=== PATIENT | male | born 1970 | race Caucasian/White ===

== ENCOUNTER 2020-05-04 10:33 | Emergency (ER) | payer OTHER, SELFPAY ==
--- NOTE | ~2020-05-04 | XR_ITS ---
EXAMINATION: XR ankle LT min 3V EXAM DATE: 05/04/2020 12:09 INDICATION: No known recent injury provided at this time. Pain of the left ankle. TECHNIQUE: Left ankle frontal, lateral and oblique projections obtained and reviewed. There is no pr ior study for comparison. FINDINGS: The left ankle mortise appears intact. Moderate-sized posterior, small inferior calcanea l spurs. Some edema within the Achilles fat pad and surrounding the ankle, nonspecific. There are no acute fractures or dislocations identified. There is no subcutaneous gas. There are no radiopaque f oreign bodies. IMPRESSION: Nonspecific left ankle region soft tissue swelling. Reviewed, dictated and finalized at location A.
[2020-05-04 10:42] VITALS: BP 133/92; PULSE 87; RESP 16; TEMP 36.3; O2SAT 100
--- NOTE | 2020-05-04 11:51 | ED.GENADULT ---
HPI - General Adult General Chief complaint: Extremity Injury, Lower Stated complaint: lt ankle injury Source: patient Mode of arrival: ambulatory Limitations: no limitations History of Present Illness HPI narrative: Patient presents for evaluation of swelling and pain to the left ankle. He states that he first noticed his symptoms yesterday. Yesterday he had 9 out of 10 pain in the left ankle, worse with weightbearing and walking. No descriptive quality to the pain. Today he states that his pain is rated 8 out of 10 in severity. He thinks he may have tweaked it last Tuesday while doing yard work. He has a history of gout but is not on medication for it. He thought his symptoms were related to gout. He took naproxen yesterday without much improvement thereafter. Related Data Home Medications Medication Instructions Recorded Confirmed No Home Medications 04/15/20 04/15/20 Allergies Allergy/AdvReac Type Severity Reaction Status Date / Time No Known Allergies Allergy Unknown Verified 07/28/18 13:16 Review of Systems Review of Systems: Narrative: CONSTITUTIONAL: Denies fever, chills, or sweats. EYES: Denies visual changes, redness, or discharge. ENT: Denies rhinorrhea, congestion, sore throat, or otalgia. CARDIOVASCULAR: Denies chest pain, palpitations. RESPIRATORY: Denies cough or dyspnea. GASTROINTESTINAL: Denies abdominal pain, nausea, vomiting, or diarrhea. GENITOURINARY: Denies dysuria or hematuria. SKIN: Denies rash or itching. MUSCULOSKELETAL: Denies back pain. Reports left ankle pain and swelling NEUROLOGIC: Denies headache, numbness, dizziness, or weakness. PSYCHIATRIC: Denies anxiety or depression. PMFSH Past Medical History Medical History Atrial fibrillation Elbow pain Gout ENEDINA (obstructive sleep apnea) Renal stones Family History Family History Sibling Cerebrovascular accident Hypertension Father Heart disease Mother Diabetes mellitus Social History Social History Smoking status: Former smoker Alcohol intake: current Living arrangements: with family Sexual Orientation (if Verbalized by the Patient): Straight or Heterosexual Exam Narrative: Exam Narrative: GENERAL: Well-appearing, well-nourished, and in no acute distress. HEAD: Normocephalic, atraumatic. EYES: PERRLA and EOMI. ENT: Nares clear, no rhinorrhea or epistaxis. Mucous membranes moist. Oropharynx without tonsillar hypertrophy exudate or other lesions. Bilateral TMs pearly hernandez nonbulging NECK: Supple. No adenopathy or masses. No carotid bruits or JVD CHEST: Clear to auscultation. No respiratory distress. No wheezes rales or rhonchi HEART: Regular rate and rhythm. No murmur heard. Normal peripheral pulses. ABDOMEN: Soft, nontender, nondistended, normal active bowel sounds. EXTREMITIES: Decreased dorsi and plantarflexion of left foot. There is tenderness over left medial malleolus. Swelling noted to left ankle. No posterior calf tenderness. No cords. SKIN: Warm, dry, no rash. Erythema noted to left ankle NEURO: No focal deficits. Alert and oriented x3. PSYCH: Normal mood and affect. Course Course Emergency Course: Pt presents for evaluation of ankle pain. He has a hx of gout and this feels similar. X ray shows no fracture and there is swelling and erythema over medial malleolus. Doubt septic joint as he is able to dorsi and plantarflex affected foot. He has a hx of a fib but doubt DVT as he has no cords, posterior calf tenderness or swelling. EKG shows sinus rhythm. Will treat for suspected gout and have him follow up tomorrow with PCP for evaluation and to determine whether additional testing clinically warranted. Vital Signs Vital signs: Vital Signs Temperature 36.3 C L 05/04/20 10:42 Pulse Rate 87 05/04/20 10:42 Re
--- NOTE | 2020-05-04 12:43 | ECG_ITS ---
Measurements Intervals [place] Rate: 80 P: 29 [place]: 136 QRS: 30 QRSD: 91 T: 40 QT: 361 QTc: 417 Interpretive Statements SINUS RHYTHM INCOMPLETE RIGHT BUNDLE BRANCH BLOCK BASELINE ARTIFACT- II, III, AVF BORDERLINE ECG Electronically Signed On 05-04-2020 16:55:45 CDT by Major Herrera D.O.
== END 2020-05-04 13:18 | disposition home or self-care (01) ==
PROVIDERS: Emergency Provider Nurse Practitioner; PCP Internal Medicine
DX: M10.9 Gout, unspecified (principal); Z87.891 Personal history of nicotine dependence; I48.91 Unspecified atrial fibrillation; G47.33 Obstructive sleep apnea (adult) (pediatric); I45.10 Unspecified right bundle-branch block
CPT/HCPCS: 73610; 93005; 99213; G0463

== ENCOUNTER 2020-11-07 09:04 | Outpatient (CLI) | payer OTHER, SELFPAY ==
--- NOTE | 2020-12-10 14:45 | WPDHOMESLEEP ---
Sleep Study - Home Unattended Date of Study: 11/07/20 Ordering Provider: YO Weinberg-Alissa Interpreting Provider: Jesica Whitt MD Home Sleep Study Type: Watch PAT Height: 1.85 m Weight: 115.666 kg Body Mass Index: 33.6 Neck Circumference (inches): 18 Klemme: 16 Reason for Sleep Study Excessive daytime sleepiness Sleep History Andrews Sutton is a 50 year old male who has excessive daytime sleepiness. He has been snoring for many years. His snoring is very loud and others complain about it constantly. He does not awaken at night with heartburn, belching or coughing. He does not awaken from sleep feeling short of breath. There is a family history with his father having sleep apnea. he does not have trouble sleep with a cold. He does not wake up suddenly gasping for breath during the night. He constantly has breathing problems at night reported to him by others. He does not sweat excessively at night or notices heart pounding or beating irregularly at night. He occasionally falls asleep during the day, occasionally falls asleep involuntarily but never falls asleep while driving. He does not have loss of muscle tone with strong emotion. He occasionally has daytime difficulties due to excessive sleepiness. 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 He does not feel paralyzed on waking or falling asleep. He does not have vivid dreamlike scenes upon awakening or falling asleep. He does not feel afraid to go to sleep. He denies having nightmares. He does not remember his dreams. Occasionally has racing thoughts. He occasionally feels sad, depressed and anxious. He does not have muscular tension. He does not notice parts of his body jerking. He does not kick at night. He does not have crawling or aching feelings in his legs and does not have any kind of leg pain at night. He does not have morning jaw pain. He does not grind his teeth during sleep. He occasionally is bothered by pain during the day. He is not awakened by pain during the night. He occasionally wakes up feeling stiff in the morning with sore achy muscles and pain in the neck and spine. He has fatigue, memory problems concentration difficulties and headaches. Normal bedtime is 1:00 a.m. taking 10 minutes to fall asleep typically waking not at all at night or up to 1 time per night. He flips to the other side and goes back to sleep. This takes about 5 minutes. He wakes the morning at 9:00 a.m.. He estimates getting between 6 and 8 hours of sleep at night. His weekend schedule is the same. he takes naps in the afternoon or evening. A short nap is not refreshing. Most of the time he feels adequate when he wakes in the morning. He has gained 5-10 lb in the last year. Habits: Never smoked tobacco. He drinks a significant amount of caffeine. He denies alcohol or recreational drugs. [facility] Past Medical History Medical History Atrial fibrillation Elbow pain Gout ENEDINA (obstructive sleep apnea) The patient does not currently have a CPAP or BiPAP machine but recently was tested for sleep apnea he stated that he did the overnight study. 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 The patient desires to be a full code. He has 2 children who are healthy. Patient is a lifelong nonsmoker but did get exposed to secondhand smoke a
[2020-12-10 15:00] VITALS: BMI 33.6
== END 2020-11-07 09:05 | disposition home or self-care (01) ==
LOC: ANHCSM 09:04
PROVIDERS: PCP Internal Medicine; Visit Provider Clinical Nurse Specialist
DX: G47.10 Hypersomnia, unspecified (principal)
CPT/HCPCS: 95800

== ENCOUNTER 2020-12-05 13:21 | Inpatient (IN) | payer OTHER, SELFPAY ==
[2020-12-05] VITALS (32 sets, daily range): BP systolic 104–128; BP diastolic 73–94; PULSE 90–147; RESP 16–23; TEMP 36.1–36.6; O2SAT 97–100; BMI 33.6
--- NOTE | ~2020-12-05 | XR_ITS ---
EXAMINATION: XR chest 1V portable DATE: 12/05/2020 14:33 INDICATION: Palpitations. TECHNIQUE: frontal view of the chest was obtained. COMPARISON: Chest radiograph dated 07/28/2018 FINDINGS: Unchanged minimal linear discoid atelectasis/scarring at the lateral left lung base. No other airspac e opacities, pulmonary edema, pleural effusion or pneumothorax. The cardiomediastinal silhouette is n ormal. Visualized bones and soft tissues are unremarkable. IMPRESSION: 1. Unchanged minimal left basilar atelectasis/scarring. Reviewed, dictated and finalized at location A.
--- NOTE | 2020-12-05 13:24 | ECG_ITS ---
Measurements Intervals [place] Rate: 150 P: [place]: 0 QRS: 42 QRSD: 79 T: 120 QT: 184 QTc: 290 Interpretive Statements ATRIAL FLUTTER/TACHYCARDIA WITH RAPID VENTRICULAR RESPONSE NONSPECIFIC ST & T-WAVE ABNORMALITY- ANTEROLAT/HIGH LAT LEADS ABNORMAL ECG Electronically Signed On 12-05-2020 13:39:20 CDT by Major Herrera D.O.
[2020-12-05] MEDS: SODIUM CHLORIDE 0.9% IV 1,000 ML 999 ML (13:57)
[2020-12-05 13:59] LABS: Basophils Percent Auto 0.6 % (0.2-1.2); Eosinophils Absolute Auto 0.1 K/mm3 (0-0.3); Eosinophils Percent Auto 1.7 % (0-4.4); Hematocrit 49.9 % (42.0-52.0); Hemoglobin 17.1 g/dL (14.0-18.0); Immature Granulocyte Absolute 0.03 K/mm3 (0.00-0.031); Immature Granulocyte Percent A 0.5 % (0-0.5); Lymphocytes Absolute Auto 1.33 K/mm3 (0.9-3.2); Lymphocytes Percent Auto 20.1 % (18.3-44.2); Mean Corpuscular HGB Conc 34.3 g/dl (32-36); Mean Corpuscular Hemoglobin 29.6 pg (26-34); Mean Corpuscular Volume 86.3 fl (80-100); Monocytes Absolute Auto 0.7 K/mm3 (0.1-0.6); Monocytes Percent Auto 9.8 % (2.6-8.5); Neutrophils Absolute Auto 4.5 K/mm3 (1.3-6.7); Neutrophils Percent Auto 67.3 % (45.5-73.1); Platelet Count Result 157 k/mm3 (150-375); Red Blood Count 5.78 M/mm3 (4.6-6.20); Red Cell Distribution Width 13.4 % (11.5-14.5); White Blood Count 6.6 K/mm3 (4.5-10.0)
[2020-12-05 14:14] LABS: INR 0.9; Partial Thromboplastin Time 26.3 SECONDS (22.3-36.8); Prothrombin Time 13.2 Seconds (11.1-14.7)
[2020-12-05 14:18] LABS: Anion Gap 5 mmol/L (8-16); Blood Urea Nitrogen 13 mg/dL (9-20); Calcium 9.4 mg/dL (8.4-10.2); Carbon Dioxide 31 mmol/L (22-30); Chloride 101 mmol/L (98-107); Estimated CRCL calculation 77 ml/min; Estimated Glomerular Filt Rate 54; Glucose 225 mg/dL (75-110); Potassium 4.4 mmol/L (3.4-5.0); Sodium 137 mmol/L (137-145)
[2020-12-05 14:29] LABS: Troponin I 0.016 ng/mL (0.000-0.034)
[2020-12-05] MEDS: METOPROLOL TARTRATE INJ 5 MG/5 ML VIAL IV PUSH ×2 (15:11→23:55)
--- NOTE | 2020-12-05 15:20 | PC.NURSE ---
p 141 regular
--- NOTE | 2020-12-05 15:36 | ED.ARRPALP ---
HPI - Arrhythmia/Palpitations General Chief Complaint: Arrhythmia/Palpitations Stated Complaint: A-Fib acting up Time Seen by Provider: 12/05/20 13:39 Source: patient Mode of arrival: ambulatory Limitations: no limitations History of Present Illness HPI narrative: 50-year-old male Had a history of paroxysmal atrial flutter 2 or 3 years ago He was hospitalized here, did not respond initially to diltiazem, but did convert with amiodarone at that time Currently is not taking any medications Yesterday he had a couple of episodes that were brief where he felt like his heart might have been fluttering Today he was getting ready for work around 1030 and his heart started racing and he felt lightheaded He denies chest pain, shortness of breath, nausea or vomiting, or diaphoresis; he just felt very weak and tired No triggers, he does not consume alcohol Related Data Home Medications Medication Instructions Recorded Confirmed No Home Medications 04/15/20 05/16/20 Allergies Allergy/AdvReac Type Severity Reaction Status Date / Time No Known Allergies Allergy Unknown Verified 05/16/20 10:07 Review of Systems Review of Systems: All systems reviewed & are unremarkable except as noted in HPI and below Constitutional: Constitutional: Reports no additional constitutional complaints, Denies chills, Reports fatigue, Denies fever(s), Denies headache(s) and Reports weakness Eyes: Eyes: Reports no additional eye complaints and Denies change in vision ENT: Denies headache(s) and Denies sore throat Cardiovascular: Cardiovascular: Denies chest pain, Reports rapid heart rate, Denies radiating jaw, neck or arm pain and Denies dyspnea Respiratory: Respiratory: Denies cough and Denies dyspnea Gastrointestinal: Gastrointestinal: Denies abdominal pain, Denies diarrhea and Denies vomiting Genitourinary: Genitourinary: Denies dysuria and Denies urinary frequency Musculoskeletal: Musculoskeletal: Denies deformity, Denies arthralgias, Denies joint swelling and Denies numbness Integumentary/Breasts: Skin/Breast: Denies rash and Denies wounds Neurologic: Denies headache(s), Denies focal weakness and Denies numbness Psychiatric: Psychiatric: Reports no additional psychiatric complaints Endocrine: Endocrine: Reports no additional endocrine complaints Hematologic/Lymphatic: Hematologic/Lymphatic: Reports no additional hematologic/lymphatic complaints Allergic/Immunologic: Allergic/Immunologic: Reports no additional allergic/immunologic complaints PMFSH Past Medical History Medical History (Updated 12/05/20 @ 17:21 by Lg Valdez MD) Atrial fibrillation Elbow pain Gout ENEDINA (obstructive sleep apnea) Renal stones Family History Family History Sibling Cerebrovascular accident Hypertension Father Heart disease Mother Diabetes mellitus Social History Social History (Updated 05/06/20 @ 08:40 by Pratibha Davis, [facility]) Smoking status: Never smoker Alcohol intake: never Exam Const: General: cooperative, healthy appearing, no acute distress and alert Orientation/consciousness: patient oriented x3 (alert) HENMT: Head: normal to inspection, normocephalic and atraumatic Ears: external ears normal General nose exam: no epistaxis Eyes: Conjunctivae: conjunctivae normal EOM: EOMs intact bilaterally Neck: Neck: normal visual inspection, supple and no JVD Resp: Effort & Inspection: normal respiratory effort and not labored Auscultation: clear to auscultation bilaterally, no rales, no rhonchi, no wheezes and other (BS =) Cardio: Rate: regular rate and tachycardic Rhythm: regular rhythm Heart sounds: no murmurs GI: GI Palp: Yes Soft to palpation and No Tenderness to palpation present (GI) Skin: General skin exam: normal color and no rashes or lesions noted Neuro: General: patient oriented x3 (alert) and moves all extremities Speech: normal spee
[2020-12-05 17:00] LABS: Troponin I 0.019 ng/mL (0.000-0.034)
[2020-12-05] MEDS: AMIODARONE 150 MG/D5W 100 ML 150 MG/100 ML BAG 600 MG IV CONT (17:33)
[2020-12-05] MEDS: ENOXAPARIN 120 MG/0.8 ML SYRINGE SUB-Q (17:40)
[2020-12-05] MEDS: AMIODARONE 360 MG/D5W 200 ML 360 MG/200 ML BAG 33.33 MG IV CONT (17:48)
--- NOTE | 2020-12-05 18:09 | PC.NURSE ---
pt noted to convert from st to aflutter on monitor.
--- NOTE | 2020-12-05 20:31 | ADMGEN ---
This patient, Andrews Sutton, was admitted to IMU Room 201-01 on 12/05/20 at 2013. Patient/family oriented to hospital policies and general routines including ID bracelet, bed and alarms, visiting hours, pain management, procedures, bathroom and other care routines, personal items, smoking policy, room service/diet, and visiting hours. Information on how to activate the Rapid Response Team has been discussed. Patient/Family are encouraged to report perceived risks to care and to ask questions if they do not understand what they are told or what they should do.
[2020-12-05 21:44] LABS: Troponin I < 0.012 ng/mL (0.000-0.034)
[2020-12-06] VITALS (22 sets, daily range): BP systolic 112–135; BP diastolic 64–92; PULSE 63–144; RESP 16; TEMP 35.7–36.2; O2SAT 97–98
[2020-12-06] MEDS: AMIODARONE 360 MG/D5W 200 ML 360 MG/200 ML BAG 16.67 MG IV CONT ×2 (00:02→12:12)
--- NOTE | 2020-12-06 00:09 | PM.IMHP ---
H&P: HPI History of Present Illness Date/Time: 12/05/20 [id number] this is a 50-year-old male patient who has a history of having AFib/a flutter in the past. The patient had been admitted here on 07/28/2018 where he was having some palpitations and came to the emergency room per private vehicle. The patient was found to be in AFib/flutter with rapid ventricular response. Who is placed on a Cardizem drip without improvement of his heart rate and was having a softer blood pressures so then he was started on amiodarone drip. The patient converted to normal sinus rhythm. He has not been on any medications since then. It was suggested that the patient take a aspirin daily but he is not even on an aspirin. And he had a couple episodes where he felt his heart flutter. Today the patient got ready for work and his heart started racing and felt lightheaded. The patient felt weak and tired. No chest pain or shortness of breath no diaphoresis nausea vomiting. His troponins were found to be negative x3. Cardiology has been consulted. The patient had been on a amiodarone drip and help to bring his heart rate down in the 1 teens. However the drip ran out and I gave him Lopressor when his heart rate was up in the 130s and 140s and it brought his heart rate down the 90s which it looked more like 3-1 and 2-1 atrial flutter. However was still very weak irregular and possibly AFib a flutter. I did continue with the amiodarone drip. However he did respond to the beta-beti. The patient was given an aspirin, IV fluids and amiodarone drip in the emergency room. He was given a dose of Lovenox as well. Patient is being admitted to observation on the date of service of 12/05/2020. Chief Complaint: Palpitation Review of Systems Review of Systems: All systems reviewed & are unremarkable except as noted in HPI and below Constitutional: Constitutional: Reports as per HPI and Reports no additional constitutional complaints Eyes: Eyes: Reports as per HPI and Reports no additional eye complaints ENT: Reports system reviewed and no additional complaints, except as documented and Reports Normal hearing present Cardiovascular: Cardiovascular: Reports no additional cardiovascular complaints Respiratory: Respiratory: Reports no additional respiratory complaints and Reports no additional respiratory complaints Gastrointestinal: Gastrointestinal: Reports as per HPI and Reports no additional gastrointestinal complaints Musculoskeletal: Musculoskeletal: Reports no additional musculoskeletal complaints Integumentary/Breasts: Skin/Breast: Reports system reviewed and no additional complaints, except as docu and Reports as per HPI Neurologic: Reports system reviewed and no additional complaints, except as documented, Reports as per HPI and Reports Normal hearing present Psychiatric: Psychiatric: Reports no additional psychiatric complaints and Reports as per HPI Endocrine: Endocrine: Reports no additional endocrine complaints Hematologic/Lymphatic: Hematologic/Lymphatic: Reports no additional hematologic/lymphatic complaints Allergic/Immunologic: Allergic/Immunologic: Reports no additional allergic/immunologic complaints [facility] Past Medical History Medical History (Updated 12/06/20 @ 00:15 by Kenzie Worrell NP) Atrial fibrillation Elbow pain Gout ENEDINA (obstructive sleep apnea) The patient does not currently have a CPAP or BiPAP machine but recently was tested for sleep apnea he stated that he did the overnight study. Renal stones Surgical History Surgical History (Updated 12/06/20 @ 00:15 by Kenzie Worrell NP) H/O cystoscopy History of extraction of renal calculus History of renal stent S/P cystourethroscopy with dilation of urethral stricture Family History Family History Sibling Hypertension Cerebrovascular accident Diabetes mellitus Father Heart disease Atrial fibrillation Mother Diabetes
[2020-12-06 04:42] LABS: Basophils Absolute Auto 0.1 K/mm3 (0.0-0.1); Basophils Percent Auto 0.7 % (0.2-1.2); Eosinophils Absolute Auto 0.2 K/mm3 (0-0.3); Eosinophils Percent Auto 2.2 % (0-4.4); Hematocrit 45.2 % (42.0-52.0); Hemoglobin 15.4 g/dL (14.0-18.0); Immature Granulocyte Absolute 0.02 K/mm3 (0.00-0.031); Immature Granulocyte Percent A 0.3 % (0-0.5); Lymphocytes Absolute Auto 2.67 K/mm3 (0.9-3.2); Lymphocytes Percent Auto 37.5 % (18.3-44.2); Mean Corpuscular HGB Conc 34.1 g/dl (32-36); Mean Corpuscular Hemoglobin 29.7 pg (26-34); Mean Corpuscular Volume 87.3 fl (80-100); Mean Platelet Volume 9.5 fl (7.4-10.4); Monocytes Absolute Auto 0.7 K/mm3 (0.1-0.6); Monocytes Percent Auto 10.4 % (2.6-8.5); Neutrophils Absolute Auto 3.5 K/mm3 (1.3-6.7); Neutrophils Percent Auto 48.9 % (45.5-73.1); Platelet Count Result 146 k/mm3 (150-375); Red Blood Count 5.18 M/mm3 (4.6-6.20); Red Cell Distribution Width 13.3 % (11.5-14.5); White Blood Count 7.1 K/mm3 (4.5-10.0)
[2020-12-06 05:00] LABS: Alanine Aminotransferase 33 U/L (4-50); Albumin Level 3.6 g/dL (3.5-5.1); Alkaline Phosphatase 69 U/L (38-126); Anion Gap 3 mmol/L (8-16); Aspartate Amino Transferase 27 U/L (17-59); Bilirubin,Total 0.5 mg/dL (0.2-1.3); Blood Urea Nitrogen 15 mg/dL (9-20); Carbon Dioxide 31 mmol/L (22-30); Chloride 104 mmol/L (98-107); Estimated CRCL calculation 83 ml/min; Estimated Glomerular Filt Rate 59; Glucose 219 mg/dL (75-110); Magnesium 1.9 mg/dL (1.6-2.3); Potassium 4.2 mmol/L (3.4-5.0); Sodium 138 mmol/L (137-145)
--- NOTE | 2020-12-06 06:00 | ECHO_ITS ---
Patient Info Name: Andrews Sutton Age: 50 years : 1970 Gender: Male Ht: 73 in Wt: 254 lbs BSA: 2.47 m2 HR: 132 bpm BP: 112 / 70 mmHg Heart Rhythm: Atrial Flutter Technical Quality: Good Exam Date: 12/06/2020 10:56 AM Exam Location: [facility] Card Pulmonary Patient Status: Inpatient Admit Date: 12/05/2020 Staff Ordering Physician: Lg Valdez MD Ski Edge Painter: Rebecca Prescott RDCS Attending Provider: Laura Mckeon MD Referring Physician: José Miguel LUBIN; Exam Type: CA echo doppler color flow Study Info Complete two-dimensional, color flow and Doppler transthoracic echocardiogram is performed. Summary 1. Complete two-dimensional, color flow and Doppler transthoracic echocardiogram is performed. 2. Left ventricular systolic function is normal, estimated at 55-60%. 3. There is mildly increased left ventricular wall thickness. 4. There is no aortic valve stenosis. 5. There is trace mitral valve regurgitation. 6. There is trace tricuspid valve regurgitation. 7. Unable to estimate PA systolic pressure due to poor spectral resolution of tricuspid regurgitant jet velocity. Left Ventricle Left ventricular chamber dimension is normal. Left ventricular systolic function is normal, estimated at 55-60%. There is mildly increased left ventricular wall thickness. The left ventricular diastolic function is indeterminate. Right Ventricle Right ventricular chamber dimension is normal. Right ventricular systolic function is normal. Left Atria Left atrial chamber dimension is normal. Right Atria Right atrial chamber dimension is normal. Aortic Valve The aortic valve is not well visualized. There is no aortic valve stenosis. There is no aortic valve regurgitation. Pulmonic Valve The pulmonic valve is not well visualized. Mitral Valve The mitral valve has thickened leaflets. There is trace mitral valve regurgitation. Tricuspid Valve The tricuspid valve leaflets are normal. There is trace tricuspid valve regurgitation. Unable to estimate PA systolic pressure due to poor spectral resolution of tricuspid regurgitant jet velocity. Pericardium/Pleural The pericardium appears normal. There is trivial pericardial effusion. Inferior Vena Cava Normal inferior vena cava with >50% collapse upon inspiration consistent with normal right atrial pressure, 5 mmHg. Aorta The aortic root size at the sinus of Valsalva is normal. Left Ventricular Outflow Tract Name Value Normal LVOT 2D LVOT Diameter 2.2 cm LVOT Doppler LVOT Peak Velocity 64 cm/s LVOT Peak Gradient 1 mmHg LVOT Mean Gradient 1 mmHg LVOT VTI 10 cm LVOT VTI/AV VTI Ratio 1.2 LVOT Stroke Volume 40 ml LVOT CO 5.2 l/min LVOT CI 2.1 l/min/m2 Pulmonic Valve Name Value Normal
--- NOTE | 2020-12-06 09:12 | PM.IMPN ---
Progress Note: A&P Assessment and Plan (1) Atrial flutter with rapid ventricular response: Code(s): I48.92 - Unspecified atrial flutter Status: Acute (2) Obesity: Code(s): E66.9 - Obesity, unspecified Status: Acute (3) Right bundle branch block: Code(s): I45.10 - Unspecified right bundle-branch block Status: Acute (4) Gout: Qualifiers: Chronicity: acute Gout etiology: unspecified cause Gout site: multiple sites Qualified Code(s): M10.9 - Gout, unspecified Code(s): M10.9 - Gout, unspecified Status: Acute Additional Plan 12/05/20 patient had an episode back in July of 2018. The patient had a rapid heart rate so was hard to determine if it was AFib or a flutter. However once I gave the beta-beti and the heart rate slowed down some it looks like his more flutter. However the heart rate is irregular. So he may be AFib flutter. The patient may possibly benefit from a beta-beti. Last admission he I am converted with medication. The patient was given the choice of having a cardioversion in the be sent home or stay at the hospital with the medication drip. The patient chose to stay overnight on the drip. Cardiology has been consulted. Troponins are negative x3. The patient was given a dose of subcu Lovenox. Patient's Ernesto Vasc score is actually 0. An echo has been ordered. We discussed possibly taking the full dose enteric-coated aspirin. Further recommendation per Cardiology. The patient recently was tested for sleep apnea but has not been ordered any CPAP machine. 12/06/20 recurrent episodes of afib/flutter 1st episode July of 2018, a very brief episode last that resolved, palpitations presented again on Tuesday morning while he was getting ready for work day did not resolve and he came to to the ER to seek medical attention. Pt remains in aflutter, cardiology bedside. plan of care reviewed w pt. will cont on amiodarone gtt and start PO Metoprolol. pt to be discharged on OAC for 30days and then transition to ASA 81mg PO Daily. Cardiology recommendations greatly appreciated. Subjective Date/time seen: 12/06/20 09:12 Patient doing okay. He does feel that his heart is still racing but he denies use severe symptoms associated with this. Last BM 2 days ago. no other complaint Exam Narrative: Exam Narrative: GEN: NAD, AAOx3, cooperative HEENT: NCAT, MMM, EOMI Neck: no JVD Heart: IRR Lungs: CTA B/l Abd: soft, NT, ND, bowel sounds normoactive Ext: moves all, no cyanosis, no clubbing, no edema Psych: mood and affect congruent Objective Data Vital Signs Vital Signs: Vital Signs - 24 hr 12/05/20 13:28 12/05/20 13:55 12/05/20 14:00 Temperature 97.8 F Pulse Rate 147 H 143 H 143 H Respiratory Rate 20 20 17 Blood Pressure 111/78 Pulse Oximetry 97 97 98 12/05/20 14:01 12/05/20 14:17 12/05/20 14:30 Temperature Pulse Rate 142 H 142 H 144 H Respiratory Rate 22 H 19 21 H Blood Pressure 113/92 H Pulse Oximetry 97 98 98 12/05/20 14:31 12/05/20 14:45 12/05/20 14:46 Temperature Pulse Rate 144 H 142 H 143 H Respiratory Rate 17 19 17 Blood Pressure 113/82 117/91 H Pulse Oximetry 97 97 98 12/05/20 15:00 12/05/20 15:01 12/05/20 15:11 Temperature Pulse Rate 142 H 143 H 142 H Respiratory Rate 18 18 Blood Pressure 108/83 Pulse Oximetry 100 98 12/05/20 15:15 12/05/20 15:16 12/05/20 15:30 Temperature Pulse Rate 141 H 141 H 139 H Respiratory Rate 19 17 23 H Blood Pressure 107/91 H Pulse Oximetry 97 98 98 12/05/20 15:31 12/05/20 15:45 12/05/20 15:46 Temperature Pulse Rate 140 H 139 H 139 H Respiratory Rate 23 H 20 16 Blood Pressure 125/94 H 115/81 Pulse Oximetry 99 98 99 12/05/20 16:00 12/05/20 16:01 12/05/20 16:02 Temperature Pulse Rate 138 H 137 H 137 H Respiratory Rate 18 20 22 H Blood Pressure 127/92 H Pulse Oximetry 98 98 98 12/05/20 16:15 12/05/20 16:16 12/05/20 17:33
[2020-12-06 09:37] LABS: Hemoglobin A1C 7.9 % (<5.7)
[2020-12-06] MEDS: METOPROLOL TARTRATE INJ 5 MG/5 ML VIAL IV PUSH ×3 (09:42→18:55)
[2020-12-06] MEDS: ENOXAPARIN 40 MG/0.4 ML SYRINGE SUB-Q (09:47)
[2020-12-06] MEDS: ENOXAPARIN 120 MG/0.8 ML SYRINGE 115 MG SUB-Q ×2 (12:13→23:32)
--- NOTE | 2020-12-06 15:31 | PM.CNCAR ---
Assessment and Plan Assessment and plan (1) Atrial flutter with rapid ventricular response: Code(s): I48.92 - Unspecified atrial flutter Status: Acute Assessment and Plan: New onset symptomatic atrial flutter with rapid ventricular response and variable AV block. continue IV amiodarone. Add metoprolol for additional rate control. Discussed management options including medical therapy, elective cardioversion. Provide systemic anticoagulation for now and at least the next 30 days with either chemical or elective cardioversion depending on patient's response to therapy. Thereafter, likely a aspirin 325 mg daily acceptable as CHADS2 Vasc score 0 (or 1 if diabetes diagnosis likely given elevated glucose levels). discussed embolic stroke risk, bleeding complication risk and pathophysiology of atrial fibrillation and atrial flutter and the differences. All questions answered to their satisfaction. Electrolytes stable, TSH 3.170. explained contributing risk factors including untreated obstructive sleep apnea, diabetes mellitus, lifestyle. Discussed more definitive management options including referral as an outpatient to electrophysiology for consideration for atrial flutter ablation. They verbalized understanding and agreed with plan of care. If elective cardioversion pursued given patient's known symptomatic onset and initiation of systemic anticoagulation within 24 hours after presentation may proceed without KELLEY guidance. discussed need for ongoing routine management and observation depending on plan of care. 2D echocardiogram personally reviewed no significant valve pathology, preserved LV systolic function. We did discuss if he was refractory medical therapy and or remains symptomatic elective cardioversion may need to be considered. (2) Obesity: Code(s): E66.9 - Obesity, unspecified Status: Acute Assessment and Plan: lifestyle modification counseling performed. (3) ENEDINA (obstructive sleep apnea): Code(s): G47.33 - Obstructive sleep apnea (adult) (pediatric) Status: Acute Assessment and Plan: Patient's significant other bedside states she absolutely notes he has obstructive sleep apnea with snoring and apnea. He recently underwent sleep study results pending. (4) Hyperglycemia: Code(s): R73.9 - Hyperglycemia, unspecified Status: Acute Assessment and Plan: Per primary service. hemoglobin A1c 7.9% suggestive of diabetes mellitus. History of Present Illness History of Present Illness Consult date/time: Date of service:12/06/20 15:31 Cardiology consultation at the request of Dr. Mckeon for opinion regarding atrial flutter with rapid ventricular response. Reason For Visit: Atrial flutter Narrative: Patient is a very pleasant 50-year-old male with a past medical history significant for isolated episode of atrial flutter with rapid ventricular response in 2018 without response to Cardizem drip converted to sinus rhythm after receiving amiodarone. Post discharge she did not follow up and has not been taking aspirin. He denies any significant recurrent episodes of palpitations until morning presentation he was getting [employer] for work he began to feel his heart was racing with associated lightheadedness, fatigue. He denies chest pain or shortness of breath. No nausea, vomiting or diaphoresis. He has ruled out with negative troponins x3. In the ER he was eventually started on amiodarone infusion as he did not respond to initial beta-beti therapy. He feels better but remains in atrial flutter with rapid ventricular response with variable AV block heart rates the 100s to 150 Averaging around 120 beats per minute. at bedside states he snores loudly and has frequent apneic spells. He recently underwent a sleep study. He denies any other limitations, bleeding complications stroke, near-syncope or syncope. Review of Systems Review of Syste
[2020-12-06] MEDS: METOPROLOL TARTRATE 25 MG TABLET PO (17:51)
[2020-12-07] VITALS (21 sets, daily range): BP systolic 103–126; BP diastolic 64–98; PULSE 80–142; RESP 16–19; TEMP 35.9–37; O2SAT 96–100
[2020-12-07] MEDS: AMIODARONE 360 MG/D5W 200 ML 360 MG/200 ML BAG 16.67 MG IV CONT ×2 (00:51→12:54)
[2020-12-07] MEDS: METOPROLOL TARTRATE 25 MG TABLET PO (05:32)
[2020-12-07] MEDS: METOPROLOL TARTRATE INJ 5 MG/5 ML VIAL IV PUSH (06:49)
[2020-12-07 07:10] LABS: Anion Gap 4 mmol/L (8-16); Blood Urea Nitrogen 15 mg/dL (9-20); Carbon Dioxide 29 mmol/L (22-30); Chloride 105 mmol/L (98-107); Estimated CRCL calculation 83 ml/min; Estimated Glomerular Filt Rate 59; Glucose 158 mg/dL (75-110); Magnesium 1.7 mg/dL (1.6-2.3); Potassium 4.1 mmol/L (3.4-5.0); Sodium 138 mmol/L (137-145)
[2020-12-07] MEDS: ENOXAPARIN 40 MG/0.4 ML SYRINGE SUB-Q (09:40)
[2020-12-07 10:47] LABS: Cholesterol 176 mg/dL (0-200); HDL Direct 22 mg/dL; Triglycerides 262 mg/dL (<150)
[2020-12-07 10:58] LABS: LDL Cholesterol Direct 125 mg/dL
--- NOTE | 2020-12-07 11:46 | PM.PNCARD ---
Progress Note: A&P Assessment and Plan (1) Atrial flutter with rapid ventricular response: Code(s): I48.92 - Unspecified atrial flutter Status: Acute Assessment and Plan: New onset symptomatic atrial flutter with rapid ventricular response and variable AV block. continue IV amiodarone. Add metoprolol for additional rate control. Discussed management options including medical therapy, elective cardioversion. Provide systemic anticoagulation for now and at least the next 30 days Eliquis 5 mg b.i.d.. Social work to obtain 1 month free card. -Metoprolol inc to 50mg q8h in effort to control HR and potential cardioversion. -NPO after midnight for elective electrical cardioversion. Anticipate discontinuation of amiodarone with cardioversion with transition to Metoprolol 50 mg b.i.d. depending on heart rate/tolerance. Discussed risks, benefits, and alternatives to elective cardioversion including but not limited to respiratory compromise, embolic stroke, and/or hypotension. -Given history of presumed ENEDINA may require anesthesia assistance. Follow-up as an outpatient thereafter with me further discussions with regards to referral to electrophysiology for ablation of atrial flutter. Patient and verbalized understanding and agreed with plan of care. All questions answered to their satisfaction. Again, 30 days systemic anticoagulation post cardioversion with aspirin 325 mg daily thereafter acceptable for CHADS2 Vasc score of 1 with new diagnosis diabetes mellitus. -2D echocardiogram personally reviewed no significant valve pathology, preserved LV systolic function. (2) Obesity: Code(s): E66.9 - Obesity, unspecified Status: Acute Assessment and Plan: lifestyle modification counseling performed. (3) ENEDINA (obstructive sleep apnea): Code(s): G47.33 - Obstructive sleep apnea (adult) (pediatric) Status: Acute Assessment and Plan: Patient's significant other bedside states she absolutely notes he has obstructive sleep apnea with snoring and apnea. He recently underwent sleep study results pending. (4) Hyperglycemia: Code(s): R73.9 - Hyperglycemia, unspecified Status: Acute Assessment and Plan: Per primary service. hemoglobin A1c 7.9% suggestive of diabetes mellitus. Subjective Date/time seen: Date of service: 12/07/20 11:46 Follow-up for atrial flutter with rapid ventricular response Feels okay. Remains in atrial flutter with variable AV block and RVR. Heart rate ranging from 110s to 140s despite amiodarone and metoprolol. No chest pain, shortness of breath or palpitations at this time. No new issues overnight. Review of Systems Review of Systems: All systems reviewed & are unremarkable except as noted in HPI and below Constitutional: Constitutional: Reports as per HPI, Reports no additional constitutional complaints and Reports fatigue Eyes: Eyes: Reports as per HPI and Reports no additional eye complaints ENT: Reports system reviewed and no additional complaints, except as documented and Reports as per HPI Cardiovascular: Cardiovascular: Reports as per HPI, Reports no additional cardiovascular complaints, Denies chest pain, Denies leg edema, Reports lightheadedness, Reports palpitations, Denies dyspnea and Denies dyspnea on exertion Respiratory: Respiratory: Reports as per HPI, Reports no additional respiratory complaints, Denies cough, Denies dyspnea and Denies dyspnea on exertion Gastrointestinal: Gastrointestinal: Reports as per HPI, Reports no additional gastrointestinal complaints, Denies abdominal pain, Denies melena, Denies hematochezia, Denies nausea and Denies vomiting Genitourinary: Genitourinary: Reports no additional male genitourinary complaints, Reports as per HPI and Denies hematuria Musculoskeletal: Musculoskeletal: Reports no additional musculoskeletal complaints and Reports as per HPI Integumentary/Breasts: Skin/Breast: Reports
--- NOTE | 2020-12-07 13:40 | PM.IMPN ---
Progress Note: A&P Assessment and Plan (1) Atrial flutter with rapid ventricular response: Code(s): I48.92 - Unspecified atrial flutter Status: Acute (2) Obesity: Code(s): E66.9 - Obesity, unspecified Status: Acute (3) Right bundle branch block: Code(s): I45.10 - Unspecified right bundle-branch block Status: Acute (4) Gout: Qualifiers: Gout site: multiple sites Gout etiology: unspecified cause Chronicity: acute Qualified Code(s): M10.9 - Gout, unspecified Code(s): M10.9 - Gout, unspecified Status: Acute (5) New onset type 2 diabetes mellitus: Code(s): E11.9 - Type 2 diabetes mellitus without complications Status: Acute Additional Plan 12/05/20 patient had an episode back in July of 2018. The patient had a rapid heart rate so was hard to determine if it was AFib or a flutter. However once I gave the beta-beti and the heart rate slowed down some it looks like his more flutter. However the heart rate is irregular. So he may be AFib flutter. The patient may possibly benefit from a beta-beti. Last admission he I am converted with medication. The patient was given the choice of having a cardioversion in the be sent home or stay at the hospital with the medication drip. The patient chose to stay overnight on the drip. Cardiology has been consulted. Troponins are negative x3. The patient was given a dose of subcu Lovenox. Patient's Ernesto Vasc score is actually 0. An echo has been ordered. We discussed possibly taking the full dose enteric-coated aspirin. Further recommendation per Cardiology. The patient recently was tested for sleep apnea but has not been ordered any CPAP machine. 12/06/20 recurrent episodes of flutter 1st episode July of 2018, a very brief episode last that resolved, palpitations presented again on Tuesday morning while he was getting ready for work day did not resolve and he came to to the ER to seek medical attention. Pt remains in aflutter, cardiology bedside. plan of care reviewed w pt. will cont on amiodarone gtt and start PO Metoprolol. pt to be discharged on OAC for 30days and then transition to ASA 81mg PO Daily. Cardiology recommendations greatly appreciated. 12/07/20 patient doing okay still remains symptomatic a flutter still remains with rate uncontrolled. Possible cardioversion tomorrow. Hemoglobin A1c resulted 7.9. New diagnosis of diabetes mellitus added to problem list. Will need diabetic Education tomorrow prior to discharge and home regimen anticipate control on orals. c/s placed to dietary. on metoprolol 50 t.i.d. and amiodarone drip transitioning to p.o. per management by bar finish operator. Recommendations appreciated. Subjective Date/time seen: 12/07/20 13:40 Patient doing okay heart rate is still not controlled. is bedside. We discussed plan of care today. Will change p.o. medications. Per Cardiology possible cardioversion tomorrow if remains in a flutter. Exam Narrative: Exam Narrative: GEN: NAD, AAOx3, cooperative HEENT: NCAT, MMM, EOMI Neck: no JVD Heart: IRR Lungs: CTA B/l Abd: soft, NT, ND, bowel sounds normoactive Ext: moves all, no cyanosis, no clubbing, no edema Psych: mood and affect congruent Objective Data Vital Signs Vital Signs: Vital Signs - 24 hr 12/06/20 14:00 12/06/20 14:13 12/06/20 16:00 Temperature 96.2 F L Pulse Rate 100 119 H 105 H Respiratory Rate 16 Blood Pressure 129/74 Pulse Oximetry 98 12/06/20 17:51 12/06/20 18:00 12/06/20 18:55 Temperature Pulse Rate 104 H 129 H 144 H Respiratory Rate Blood Pressure Pulse Oximetry 12/06/20 19:49 12/06/20 20:00 12/06/20 22:00 Temperature 97.2 F L Pulse Rate 115 H 142 H 118 H Respiratory Rate 16 16 Blood Pressure 121/92 H Pulse Oximetry 97 97 12/06/20 23:29 12/07/20 00:00 12/07/20 00:51 Temperature 97.2 F L Pulse Rate 103 H 103 H 104 H Respiratory Rate 16 16 Blo
[2020-12-07] MEDS: METOPROLOL TARTRATE 50 MG TAB PO ×2 (14:00→20:36)
[2020-12-07] MEDS: APIXABAN 5 MG TABLET PO ×2 (14:00→20:36)
[2020-12-07 16:14] LABS: Glucose Point of Care 235 (65-105)
[2020-12-07] MEDS: INSULIN ASPART (*BKC) 100 UNITS/ML SUB-Q (17:10)
[2020-12-07 20:40] LABS: Glucose Point of Care 137 (65-105)
[2020-12-08] VITALS (10 sets, daily range): BP systolic 111–113; BP diastolic 66–77; PULSE 70–95; RESP 18; TEMP 36.2–36.6; O2SAT 98–100
[2020-12-08] MEDS: AMIODARONE 360 MG/D5W 200 ML 360 MG/200 ML BAG 16.67 MG IV CONT (00:33)
--- NOTE | 2020-12-08 04:38 | ECG_ITS ---
Measurements Intervals [place] Rate: 76 P: 72 NV: 167 QRS: 73 QRSD: 110 T: 80 QT: 385 QTc: 435 Interpretive Statements SINUS RHYTHM POSSIBLE RIGHT ATRIAL ENLARGEMENT INCOMPLETE RIGHT BUNDLE BRANCH BLOCK BASELINE ARTIFACT- I, III, AVR, AVL BORDERLINE ECG Electronically Signed On 12-08-2020 7:10:42 CDT by Major Herrera D.O.
[2020-12-08 05:35] LABS: Hematocrit 42.2 % (42.0-52.0); Hemoglobin 14.6 g/dL (14.0-18.0); Mean Corpuscular HGB Conc 34.6 g/dl (32-36); Mean Corpuscular Volume 86.8 fl (80-100); Mean Platelet Volume 9.8 fl (7.4-10.4); Platelet Count Result 155 k/mm3 (150-375); Red Blood Count 4.86 M/mm3 (4.6-6.20); Red Cell Distribution Width 13.5 % (11.5-14.5); White Blood Count 8.9 K/mm3 (4.5-10.0)
[2020-12-08] MEDS: METOPROLOL TARTRATE 50 MG TAB PO (05:53)
[2020-12-08 05:55] LABS: Anion Gap 2 mmol/L (8-16); Blood Urea Nitrogen 13 mg/dL (9-20); Calcium 8.8 mg/dL (8.4-10.2); Carbon Dioxide 33 mmol/L (22-30); Chloride 103 mmol/L (98-107); Estimated CRCL calculation 72 ml/min; Estimated Glomerular Filt Rate 50; Glucose 144 mg/dL (75-110); Magnesium 1.9 mg/dL (1.6-2.3); Potassium 4.2 mmol/L (3.4-5.0); Sodium 138 mmol/L (137-145)
[2020-12-08 08:30] LABS: Glucose Point of Care 156 (65-105)
--- NOTE | 2020-12-08 08:58 | PM.PNCARD ---
Progress Note: A&P Assessment and Plan (1) Atrial flutter with rapid ventricular response: Code(s): I48.92 - Unspecified atrial flutter Status: Acute Assessment and Plan: New onset symptomatic atrial flutter with rapid ventricular response and variable AV block. Provide systemic anticoagulation for now and at least the next 30 days Eliquis 5 mg b.i.d.. Social work to obtain 1 month free card. DC amiodarone drip. Reduce metoprolol down to 50 mg p.o. b.i.d. -Given history of presumed ENEDINA may require anesthesia assistance. Follow-up as an outpatient thereafter with me further discussions with regards to referral to electrophysiology for ablation of atrial flutter. Again, 30 days systemic anticoagulation post cardioversion with long-term decisions of anticoagulation per Dr. Garrett thereafter acceptable for CHADS2 Vasc score of 1 with new diagnosis diabetes mellitus. Okay for discharge from my perspective (2) Obesity: Code(s): E66.9 - Obesity, unspecified Status: Acute Assessment and Plan: lifestyle modification counseling performed. (3) ENEDINA (obstructive sleep apnea): Code(s): G47.33 - Obstructive sleep apnea (adult) (pediatric) Status: Acute Assessment and Plan: Patient's significant other bedside states she absolutely notes he has obstructive sleep apnea with snoring and apnea. He recently underwent sleep study results pending. Sleep apnea treatment imperative for rhythm control (4) Hyperglycemia: Code(s): R73.9 - Hyperglycemia, unspecified Status: Deleted Assessment and Plan: Per primary service. hemoglobin A1c 7.9% suggestive of diabetes mellitus. Subjective Date/time seen: 12/08/20 08:58 Interval history: 50-year-old with atrial flutter. Date of service 12/08/2020: He returns today anywhere converted back to sinus rhythm last night. He denies any other symptoms at this point. No chest pain, shortness of breath Review of Systems Review of Systems: All systems reviewed & are unremarkable except as noted in HPI and below Constitutional: Constitutional: Reports as per HPI, Reports no additional constitutional complaints and Reports fatigue Eyes: Eyes: Reports as per HPI and Reports no additional eye complaints ENT: Reports system reviewed and no additional complaints, except as documented and Reports as per HPI Cardiovascular: Cardiovascular: Reports as per HPI, Reports no additional cardiovascular complaints, Denies chest pain, Denies leg edema, Reports lightheadedness, Reports palpitations, Denies dyspnea and Denies dyspnea on exertion Respiratory: Respiratory: Reports as per HPI, Reports no additional respiratory complaints, Denies cough, Denies dyspnea and Denies dyspnea on exertion Gastrointestinal: Gastrointestinal: Reports as per HPI, Reports no additional gastrointestinal complaints, Denies abdominal pain, Denies melena, Denies hematochezia, Denies nausea and Denies vomiting Genitourinary: Genitourinary: Reports no additional male genitourinary complaints, Reports as per HPI and Denies hematuria Musculoskeletal: Musculoskeletal: Reports no additional musculoskeletal complaints and Reports as per HPI Integumentary/Breasts: Skin/Breast: Reports system reviewed and no additional complaints, except as docu and Reports as per HPI Neurologic: Reports system reviewed and no additional complaints, except as documented and Reports as per HPI Psychiatric: Psychiatric: Reports no additional psychiatric complaints and Reports as per HPI Endocrine: Endocrine: Reports no additional endocrine complaints, Reports as per HPI, Reports fatigue and Reports palpitations Hematologic/Lymphatic: Hematologic/Lymphatic: Reports no additional hematologic/lymphatic complaints and Reports as per HPI Allergic/Immunologic: Allergic/Immunologic: Reports no additional allergic/immunologic complaints and Reports as per HPI Exam Narrative: Exam Narrative:
[2020-12-08 09:05] LABS: Phosphorus 3.6 mg/dL (2.5-4.5)
[2020-12-08] MEDS: APIXABAN 5 MG TABLET PO (09:07)
--- NOTE | 2020-12-08 09:41 | PM.DS ---
DS: Admitting Diagnosis Admitting Diagnosis Admitting Diagnosis: Palpitations, Atrial Fibrillation with RVR, Obstructive Sleep Apnea, New Onset Type II DM, Acute Renal Failure,, Elevated Triglycerides DS: Discharge Diagnosis Discharge Diagnosis (1) Atrial flutter with rapid ventricular response: Code(s): I48.92 - Unspecified atrial flutter Status: Acute Assessment and Plan: The patient had an episode back in July of 2018. The patient had a rapid heart rate so was hard to determine if it was AFib or a flutter. Given the beta-beti and the heart rate slowed down some it looks like his more flutter. However the heart rate is irregular. So he may be AFib flutter. The patient may possibly benefit from a beta-beti. Last admission he converted with medication. The patient was given the choice of having a cardioversion in the be sent home or stay at the hospital with the medication drip. The patient chose to stay overnight on the drip. Cardiology has been consulted. Troponins are negative x3. patient was given a dose of subcu Lovenox. Patient's Ernesto Vasc score is actually 0. An echo has been ordered. We discussed possibly taking the full dose enteric-coated aspirin. Further recommendation per Cardiology. overnight heart rate /rhythm became very regular, Normal Sinus Rhythm. EKG completed this morning to confirm, rate 70-80s. Cigarette Vendor ok with discharge this morning on Eliquis and Metoprolol. Patient is to follow up with them in 2-4 weeks. currently no palpitations, no chest pain, no shortness of breath (2) Obesity: Code(s): E66.9 - Obesity, unspecified Status: Acute Assessment and Plan: see Type II Dm onset plan below elevated triglycerides likely related to uncontrolled DM follow up with labs with PCP and/or Cigarette Vendor in 4-6 weeks. rest of cholesterol panel WNL (3) Right bundle branch block: Code(s): I45.10 - Unspecified right bundle-branch block Status: Acute Assessment and Plan: EKG this morning with Sinus rhythm rate controlled. 60-80s Following Recommendations per Cardiology. overnight heart rate /rhythm became very regular, Normal Sinus Rhythm. Cigarette Vendor ok with discharge this morning on Eliquis and Metoprolol. Patient is to follow up with them in 2-4 weeks. (4) Gout: Qualifiers: Chronicity: acute Gout etiology: unspecified cause Gout site: multiple sites Qualified Code(s): M10.9 - Gout, unspecified Code(s): M10.9 - Gout, unspecified Status: Acute Assessment and Plan: monitor and discuss with PCP no acute flare up noted at this time no complaints per patient (5) New onset type 2 diabetes mellitus: Code(s): E11.9 - Type 2 diabetes mellitus without complications Status: Acute Assessment and Plan: New Onset Type II DM, Acute Renal Failure, Follow Diabetic Diet education and work to start monitoring your Calorie counting and Carb control. My Fitness Pal may help you. Diabetic Diet education attached at discharge and you can discuss with Primary Care Provider if you need an appointment to see a Credit Review Officer /Spout Worker/ or Human Resource Consultant . Monitor Eye site and get appropriate annual eye exams. Monitor Renal function. stay well hydrated and get bloodwork done in 2-3 days to monitor for improved renal function. discuss this with your Primary Care Provider at your hospital follow up visit. Educated patient that glucose 100-160 is ideal Glucose levels today are 137, 156 Will avoid starting Metformin at this time due to rising Creatinine. Call and schedule yourself a Hospital Discharge Follow up visit to see Primary Care Provider within 3-10 days. Be sure to discuss new onset Diabetes type II with A1C = 7.9. Also monitor thyroid function. TSH = 3.17. Discuss with Primary Care Provider and follow up with repeat labwork in 6 weeks. (6) Acute kidney injury (nontraumatic): Code(s):
== END 2020-12-08 11:10 | disposition home or self-care (01) | DRG 309 ==
LOC: ANHED 17:21 → ANHIMU 18:34
PROVIDERS: Emergency Medicine; Nurse Practitioner; Admitting Provider Hospitalist; Emergency Provider Emergency Medicine; PCP Internal Medicine; Visit Provider Nurse Practitioner
DX: I48.92 Unspecified atrial flutter (principal); N17.9 Acute kidney failure, unspecified; G47.33 Obstructive sleep apnea (adult) (pediatric); I45.10 Unspecified right bundle-branch block; M10.9 Gout, unspecified; E66.9 Obesity, unspecified; E11.9 Type 2 diabetes mellitus without complications
CPT/HCPCS: 36415; 71045; 80048; 80053; 80061; 82948; 83036; 83735; 84100; 84443; 84484; 85025; 85027; 85610; 85730; 93005; 93306; 96361; 96365; 96366; 96372; 96375; 96376; 99285; A9270; G0378; J0282; J1650; J1815; J7030

== ENCOUNTER 2020-12-11 11:18 | Outpatient (CLI) | payer OTHER, SELFPAY ==
--- NOTE | ~2020-12-11 | US_ITS ---
EXAMINATION: US venous doppler UE RT DATE: 12/11/2020 11:17 INDICATION: Right upper limb pain. TECHNIQUE: Grayscale ultrasound images without and with compression and Doppler ultrasound images of the right upper extremity veins were obtained. COMPARISON: None. FINDINGS: The visualized portions of the right internal jugular vein, subclavian vein, axillary vein, brachial veins, basilic vein, radial vein, and ulnar vein are patent. There is thrombus in right cephalic vein . IMPRESSION: 1. No deep venous thrombosis. 2. Thrombus in right cephalic vein, which is a superficial vein. Reviewed, dictated and finalized at location B.
[2020-12-11 11:56] LABS: Anion Gap 2 mmol/L (8-16); Blood Urea Nitrogen 18 mg/dL (9-20); Calcium 8.9 mg/dL (8.4-10.2); Carbon Dioxide 32 mmol/L (22-30); Chloride 104 mmol/L (98-107); Estimated Glomerular Filt Rate 54; Glucose 120 mg/dL (75-110); Potassium 4.1 mmol/L (3.4-5.0); Sodium 138 mmol/L (137-145)
== END 2020-12-11 11:19 | disposition home or self-care (01) ==
PROVIDERS: PCP Internal Medicine; Visit Provider Nurse Practitioner
DX: M79.601 Pain in right arm (principal); N17.9 Acute kidney failure, unspecified; I82.611 Acute embolism and thrombosis of superficial veins of right upper extremity
CPT/HCPCS: 36415; 80048; 93971

== ENCOUNTER 2021-02-20 11:00 | Emergency (ER) | payer OTHER, SELFPAY ==
--- NOTE | ~2021-02-20 | XR_ITS ---
EXAMINATION: XR knee RT 3V DATE: 02/20/2021 11:19 INDICATION: Right knee pain TECHNIQUE: Three views of the right knee were obtained. COMPARISON: None. FINDINGS: There is cortical irregularity at the anterolateral aspect of the patella. A moderate size knee joint effusion is present. Joint spaces are normal with no erosions. Soft tissues are unremarka ble. IMPRESSION: 1. Moderate-sized knee joint effusion. 2. Mild cortical irregularity at the anterolateral aspect of the patella which could reflect acute fr acture. Reviewed, dictated and finalized at location B. IMPRESSION: 1. Moderate-sized knee joint effusion. 2. Mild cortical irregularity at the anterolateral aspect of the patella which could reflect acute fracture.
[2021-02-20 11:30] VITALS: BP 144/88; PULSE 98; RESP 16; TEMP 36.7; O2SAT 100
--- NOTE | 2021-02-20 11:34 | ED.LOWEXIN ---
HPI - Extremity Injury (Lower) General Chief Complaint: Extremity Injury, Lower Stated Complaint: R KNEE PAIN Source: patient Mode of arrival: ambulatory Limitations: no limitations History of Present Illness HPI Narrative: 50-year-old male presents to [facility] with complaints of pain and swelling to his right knee for the past 4 days. Patient reports he was walking 4 days ago on uneven ground when he twisted his right knee. Patient denies falling. Patient has not tried taking any [id number] medications for symptoms. Patient has been applying ice and using a cane for ambulation. Patient also has been wearing a brace with mild relief. Patient denies previous knee injury. MD complaint: knee injury Onset (ago): day(s) (4) Injury: Right: knee Exacerbating factors: weight bearing and movement Associated symptoms: swelling Other symptoms: none Treatments prior to arrival: cold therapy Related Data Home Medications Medication Instructions Recorded Confirmed Aspir-81 02/20/21 Allergies Allergy/AdvReac Type Severity Reaction Status Date / Time No Known Allergies Allergy Unknown Verified 12/05/20 20:26 Review of Systems Constitutional: Constitutional: Denies chills, Denies fever(s) and Denies weakness ENT: Denies dysphagia, Denies epistaxis and Denies sore throat Cardiovascular: Cardiovascular: Denies chest pain, Denies rapid heart rate and Denies slow heart rate Respiratory: Respiratory: Denies chest congestion, Denies cough and Denies wheezing Gastrointestinal: Gastrointestinal: Denies abdominal pain, Denies diarrhea, Denies nausea and Denies vomiting Musculoskeletal: Musculoskeletal: Reports arthralgias and Reports joint swelling Comments: Right knee pain and swelling Integumentary/Breasts: Skin/Breast: Denies rash PMFSH Past Medical History Medical History Atrial fibrillation Elbow pain Gout ENEDINA (obstructive sleep apnea) The patient does not currently have a CPAP or BiPAP machine but recently was tested for sleep apnea he stated that he did the overnight study. Renal stones Surgical History Surgical History H/O cystoscopy History of extraction of renal calculus History of renal stent S/P cystourethroscopy with dilation of urethral stricture Family History Family History Sibling Hypertension Cerebrovascular accident Diabetes mellitus Father Heart disease Atrial fibrillation Mother Diabetes mellitus Social History Social History Social History: The patient stated that his is the durable power disability attorney for healthcare. The patient desires to be a full code. He has 2 children who are healthy. Patient is a lifelong nonsmoker but did get exposed to secondhand smoke as a child. The patient occasionally drinks on holidays occasionally rarely. Smoking status: Never smoker Second hand tobacco smoke exposure: Yes (as a child) Alcohol intake: never Alcohol use details: Pt drinks rarely. 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 There is no relevant family history pertinent to the presenting complaint. Exam Const: General: no acute distress Nutritional Appearance: well nourished Orientation/consciousness: patient oriented x3 Neck: Neck: normal visual inspection Chest: Chest palpation & inspection: normal inspection of the chest Resp: Effort & Inspection: normal respiratory effort Auscultation: clear to auscultation bilaterally Cardio: Rate: regular ra
== END 2021-02-20 11:52 | disposition home or self-care (01) ==
PROVIDERS: Emergency Provider Nurse Practitioner Family; PCP Internal Medicine
DX: S82.001A Unspecified fracture of right patella, initial encounter for closed fracture (principal); X50.9XXA Other and unspecified overexertion or strenuous movements or postures, initial encounter; I48.91 Unspecified atrial fibrillation; M10.9 Gout, unspecified; G47.33 Obstructive sleep apnea (adult) (pediatric)
CPT/HCPCS: 73562; 99214; G0463; L1830

== ENCOUNTER 2021-03-11 11:27 | Outpatient (CLI) | payer OTHER, SELFPAY ==
[2021-03-11 12:47] LABS: Anion Gap 5 mmol/L (8-16); Blood Urea Nitrogen 13 mg/dL (9-20); Calcium 9.3 mg/dL (8.4-10.2); Carbon Dioxide 31 mmol/L (22-30); Chloride 105 mmol/L (98-107); Estimated Glomerular Filt Rate > 60; Glucose 157 mg/dL (65-110); Potassium 4.3 mmol/L (3.4-5.0); Sodium 141 mmol/L (137-145)
[2021-03-11 12:56] LABS: Hemoglobin A1C 5.1 % (<5.7)
== END 2021-03-11 11:28 | disposition home or self-care (01) ==
PROVIDERS: PCP Internal Medicine; Visit Provider Nurse Practitioner
DX: E11.9 Type 2 diabetes mellitus without complications (principal)
CPT/HCPCS: 36415; 80048; 83036

== ENCOUNTER 2021-04-29 07:40 | Outpatient (CLI) | payer OTHER, SELFPAY ==
--- NOTE | 2021-05-13 10:26 | WPDSLEEPSTUD ---
Sleep Study Date of Study: 04/29/21 <Ave Savage DO - Last Filed: 05/13/21 12:23> Ordering Provider: Laura Lagunas NP <Ave Savage DO - Last Filed: 05/13/21 12:23> Interpreting Physician: Ave Savage DO <Ave Savage DO - Last Filed: 05/13/21 12:23> Sleep Study Type: CPAP Titration <Ave Savage DO - Last Filed: 05/13/21 12:23> Height: 1.85 m <Ave Savage DO - Last Filed: 05/13/21 12:23> Weight: 108.862 kg <Ave Savage DO - Last Filed: 05/13/21 12:23> Body Mass Index: 31.6 <Ave Savage DO - Last Filed: 05/13/21 12:23> Neck Circumference (inches): 17 <Ave Savage DO - Last Filed: 05/13/21 12:23> Windfall: 5 <Ave Savage DO - Last Filed: 05/13/21 12:23> Reason for Sleep Study The patient had a home sleep test on November 07, 2020 that showed an AHI of 26.1, central AHI of 8.3 with a desaturation to 82%. He had a Pap titration ordered due to the increased central apnea index. <vAe Savage DO - Last Filed: 05/13/21 12:23> Sleep History Andrews Sutton is a 50 year old male who has excessive daytime sleepiness. He has been snoring for many years. His snoring is very loud and others complain about it constantly. He does not awaken at night with heartburn, belching or coughing. He does not awaken from sleep feeling short of breath. There is a family history with his father having sleep apnea. he does not have trouble sleep with a cold. He does not wake up suddenly gasping for breath during the night. He constantly has breathing problems at night reported to him by others. He does not sweat excessively at night or notices heart pounding or beating irregularly at night. He occasionally falls asleep during the day, occasionally falls asleep involuntarily but never falls asleep while driving. He does not have loss of muscle tone with strong emotion. He occasionally has daytime difficulties due to excessive sleepiness. 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 He does not feel paralyzed on waking or falling asleep. He does not have vivid dreamlike scenes upon awakening or falling asleep. He does not feel afraid to go to sleep. He denies having nightmares. He does not remember his dreams. Occasionally has racing thoughts. He occasionally feels sad, depressed and anxious. He does not have muscular tension. He does not notice parts of his body jerking. He does not kick at night. He does not have crawling or aching feelings in his legs and does not have any kind of leg pain at night. He does not have morning jaw pain. He does not grind his teeth during sleep. He occasionally is bothered by pain during the day. He is not awakened by pain during the night. He occasionally wakes up feeling stiff in the morning with sore achy muscles and pain in the neck and spine. He has fatigue, memory problems concentration difficulties and headaches. Normal bedtime is 1:00 a.m. taking 10 minutes to fall asleep typically waking not at all at night or up to 1 time per night. He flips to the other side and goes back to sleep. This takes about 5 minutes. He wakes the morning at 9:00 a.m.. He estimates getting between 6 and 8 hours of sleep at night. His weekend schedule is the same. he takes naps in the afternoon or evening. A short nap is not refreshing. Most of the time he feels adequate when he wakes in the morning. He has gained 5-10 lb in the last year. Habits: Never smoked tobacco. He drinks a significant amount of caffeine. He denies alcohol or recreational drugs. <Ave Savage DO - Last Filed: 05/13/21 12:23> [facility], [facility] Past Medical History Medical History: Medical History Atrial fibrillation Elbow pain Gout ENEDINA (obstructive sleep apnea) The patient does not currently have a CPAP or BiPAP machine but recently was tested for
[2021-05-13 12:22] VITALS: BMI 31.6
== END 2021-04-30 07:56 | disposition home or self-care (01) ==
LOC: ANHCSM 07:42
PROVIDERS: PCP Internal Medicine; Visit Provider Nurse Practitioner
DX: G47.33 Obstructive sleep apnea (adult) (pediatric) (principal); G47.31 Primary central sleep apnea
CPT/HCPCS: 95811

== ENCOUNTER 2022-01-07 11:46 | Outpatient (CLI) | payer OTHER, SELFPAY ==
--- NOTE | ~2022-01-07 | XR_ITS ---
XR knee LT 3V 01/07/2022 12:17 INDICATION: Left knee pain PROCEDURE: 3 views left knee COMPARISON: No prior studies for comparison. FINDINGS: Fracture, dislocation or subluxation is not identified. No significant joint effusion. The soft tissues appear within normal limits. No foreign bodies are identified. IMPRESSION: 1: NO ACUTE BONE OR JOINT ABNORMALITY IDENTIFIED. Reviewed, dictated and finalized at location B.
[2022-01-07 12:34] LABS: Basophils Absolute Auto 0.1 K/mm3 (0.0-0.1); Basophils Percent Auto 0.8 % (0.2-1.2); Eosinophils Absolute Auto 0.1 K/mm3 (0-0.3); Eosinophils Percent Auto 1.7 % (0-4.4); Hematocrit 45.5 % (42.0-52.0); Immature Granulocyte Absolute 0.03 K/mm3 (0.00-0.031); Immature Granulocyte Percent A 0.5 % (0-0.5); Immature Platelet Fraction Pct 1.7 % (0.9-11.2); Lymphocytes Absolute Auto 1.37 K/mm3 (0.9-3.2); Lymphocytes Percent Auto 22.8 % (18.3-44.2); Mean Corpuscular HGB Conc 35.2 g/dl (32-36); Mean Corpuscular Hemoglobin 30.5 pg (26-34); Mean Corpuscular Volume 86.7 fl (80-100); Mean Platelet Volume 8.9 fl (7.4-10.4); Monocytes Absolute Auto 0.7 K/mm3 (0.1-0.6); Monocytes Percent Auto 10.8 % (2.6-8.5); Neutrophils Absolute Auto 3.8 K/mm3 (1.3-6.7); Neutrophils Percent Auto 63.4 % (45.5-73.1); Platelet Count Result 157 k/mm3 (150-375); Red Blood Count 5.25 M/mm3 (4.6-6.20); Red Cell Distribution Width 13.1 % (11.5-14.5)
[2022-01-07 12:44] LABS: Alanine Aminotransferase 32 U/L (6-50); Albumin Level 4.3 g/dL (3.5-5.1); Alkaline Phosphatase 80 U/L (38-126); Anion Gap 7 mmol/L (8-16); Aspartate Amino Transferase 42 U/L (17-59); Bilirubin,Total 1.3 mg/dL (0.2-1.3); Blood Urea Nitrogen 15 mg/dL (9-20); Calcium 8.8 mg/dL (8.4-10.2); Carbon Dioxide 30 mmol/L (22-30); Chloride 102 mmol/L (98-107); Estimated Glomerular Filt Rate > 60; Glucose 162 mg/dL (65-110); Potassium 4.2 mmol/L (3.4-5.0); Rheumatoid Factor < 8.6 IU/ML (<12); Sodium 139 mmol/L (137-145); Uric Acid 7.2 mg/dL (3.5-8.5)
[2022-01-07 12:52] LABS: Hemoglobin A1C 7.1 % (<5.7)
[2022-01-07 13:46] LABS: Erythrocyte Sedimentation Rate 9 mm/hr (0-20)
== END 2022-01-07 11:47 | disposition home or self-care (01) ==
PROVIDERS: PCP Internal Medicine; Visit Provider Clinical Nurse Specialist
DX: E11.9 Type 2 diabetes mellitus without complications (principal); M25.40 Effusion, unspecified joint; M10.9 Gout, unspecified; M25.569 Pain in unspecified knee
CPT/HCPCS: 36415; 73562; 80053; 83036; 84550; 85025; 85055; 85652; 86038; 86430

== ENCOUNTER 2022-02-28 04:40 | Emergency (ER) | payer BC, SELFPAY ==
[2022-02-28 04:46] VITALS: BP 117/85; PULSE 67; RESP 18; O2SAT 100
--- NOTE | 2022-02-28 04:46 | ECG_ITS ---
Measurements Intervals [place] Rate: 67 P: 39 NV: 173 QRS: 42 QRSD: 106 T: 29 QT: 355 QTc: 376 Interpretive Statements SINUS RHYTHM POSSIBLE LEFT ATRIAL ENLARGEMENT INCOMPLETE RIGHT BUNDLE BRANCH BLOCK BORDERLINE ECG Electronically Signed On 02-28-2022 8:10:22 CDT by Major Herrera D.O.
--- NOTE | 2022-02-28 04:57 | PC.NURSE ---
Patients bedside glucose is 459. ERP notified.
[2022-02-28 04:59] LABS: Glucose Point of Care 459 mg/dl (65-105)
[2022-02-28 05:18] LABS: Basophils Absolute Auto 0.1 K/mm3 (0.0-0.1); Basophils Percent Auto 1.4 % (0.2-1.2); Eosinophils Absolute Auto 0.1 K/mm3 (0-0.3); Eosinophils Percent Auto 2.7 % (0-4.4); Hematocrit 45.6 % (42.0-52.0); Hemoglobin 15.8 g/dL (14.0-18.0); Immature Granulocyte Absolute 0.02 K/mm3 (0.00-0.031); Immature Granulocyte Percent A 0.4 % (0-0.5); Lymphocytes Absolute Auto 1.79 K/mm3 (0.9-3.2); Lymphocytes Percent Auto 34.7 % (18.3-44.2); Mean Corpuscular HGB Conc 34.6 g/dl (32-36); Mean Corpuscular Hemoglobin 30.2 pg (26-34); Mean Corpuscular Volume 87.2 fl (80-100); Mean Platelet Volume 10.1 fl (7.4-10.4); Monocytes Absolute Auto 0.6 K/mm3 (0.1-0.6); Monocytes Percent Auto 10.7 % (2.6-8.5); Neutrophils Absolute Auto 2.6 K/mm3 (1.3-6.7); Neutrophils Percent Auto 50.1 % (45.5-73.1); Platelet Count Result 159 k/mm3 (150-375); Red Blood Count 5.23 M/mm3 (4.6-6.20); Red Cell Distribution Width 13.4 % (11.5-14.5); White Blood Count 5.2 K/mm3 (4.5-10.0)
[2022-02-28] MEDS: SODIUM CHLORIDE 0.9% IV 1,000 ML 999 ML IV CONT ×2 (05:22→05:55)
--- NOTE | 2022-02-28 05:29 | ED.GENADULT ---
HPI - General Adult General Chief complaint: Recheck/Abnormal Lab/Rx Stated complaint: high BS Time Seen by Provider: 02/28/22 04:47 History of Present Illness HPI narrative: Patient is a 51-year-old male complaining of elevated blood sugar at home. Patient states that he felt jittery earlier this morning so he took his blood sugar and it was in the 400s . Patient states that same time last year he was diagnosed with elevated blood sugar, was placed on metformin for 2 months his blood sugars been good so his doctor advised him to stop taking it and has not had a problem since. Patient denies any symptoms at this time. Patient denies any dizziness, chest pain, shortness of breath, abdominal pain, nausea, vomiting, diarrhea, urinary symptoms, fever or chills. Related Data Home Medications Medication Instructions Recorded Confirmed Aspir-81 02/20/21 01/07/22 metoprolol tartrate 50 mg tablet 50 mg PO Q12H 03/18/21 01/07/22 Allergies Allergy/AdvReac Type Severity Reaction Status Date / Time No Known Allergies Allergy Unknown Verified 01/07/22 10:48 Review of Systems Review of Systems: All systems reviewed & are unremarkable except as noted in HPI and below Constitutional: Constitutional: Denies body ache(s), Denies chills, Denies excessive sweating, Denies fatigue, Denies fever(s), Denies headache(s), Denies lethargy, Denies malaise, Denies weakness and Denies weight loss Eyes: Eyes: Denies blurry vision, Denies change in vision and Denies loss of vision ENT: Denies dizziness, Denies ear discharge, Denies headache(s), Denies lip swelling, Denies epistaxis, Denies nasal congestion, Denies neck pain, Denies throat swelling and Denies tongue swelling Cardiovascular: Cardiovascular: Denies chest pain, Denies chest pain at rest, Denies chest pain with activity, Denies diaphoresis, Denies rapid heart rate, Denies edema, Denies irregular heart rhythm, Denies lightheadedness, Denies palpitations, Denies dyspnea and Denies dyspnea on exertion Respiratory: Respiratory: Denies chest congestion, Denies cough, Denies hemoptysis, Denies dyspnea and Denies dyspnea on exertion Gastrointestinal: Gastrointestinal: Denies abdominal pain, Denies melena, Denies hematochezia, Denies diarrhea, Denies nausea, Denies vomiting and Denies hematemesis Musculoskeletal: Musculoskeletal: Denies abnormal gait, Denies deformity, Denies joint swelling, Denies limited range of motion, Denies neck pain and Denies numbness Neurologic: Denies Abnormal speech present, Denies abnormal gait, Denies confusion, Denies dizziness, Denies headache(s), Denies focal weakness, Denies loss of vision, Denies numbness, Denies Other visual disturbances, Denies Sensory deficit (Neuro) and Denies weakness Psychiatric: Psychiatric: Denies confusion, Denies depression, Denies auditory hallucinations, Denies homicidal ideation and Denies suicidal ideation Endocrine: Endocrine: Denies cold intolerance, Denies excessive sweating, Denies fatigue, Denies heat intolerance and Denies palpitations Hematologic/Lymphatic: Hematologic/Lymphatic: Denies easy bleeding and Denies easy bruising Allergic/Immunologic: Allergic/Immunologic: Denies lip swelling, Denies throat swelling and Denies tongue swelling PMFSH Past Medical History Medical History Atrial fibrillation Elbow pain Gout ENEDINA (obstructive sleep apnea) The patient does not currently have a CPAP or BiPAP machine but recently was tested for sleep apnea he stated that he did the overnight study. Renal stones Surgical History Surgical History H/O cystoscopy History of extraction of renal calculus History of renal stent S/P cystourethroscopy with dilation of urethral stricture Family History Family History Sibling Hypertension Cerebrovascular accident Diabetes sirisha
[2022-02-28 05:30] LABS: Alanine Aminotransferase 22 U/L (6-50); Albumin Level 4.5 g/dL (3.5-5.1); Alkaline Phosphatase 140 U/L (38-126); Anion Gap 10 mmol/L (8-16); Aspartate Amino Transferase 27 U/L (17-59); Blood Urea Nitrogen 15 mg/dL (9-20); Calcium 8.9 mg/dL (8.4-10.2); Carbon Dioxide 30 mmol/L (22-30); Chloride 95 mmol/L (98-107); Estimated CRCL calculation 88 ml/min; Estimated Glomerular Filt Rate > 60; Glucose 455 mg/dL (65-110); Sodium 135 mmol/L (137-145)
[2022-02-28 06:17] LABS: Appearance Urine Clear (Clear); Bilirubin Urine Negative (Negative); Blood Urine Trace-lysed (Negative); Glucose Urine UA 3+ mg/dL (Negative); Ketones Urine 1+ mg/dL (Negative); Leukocyte Esterase Ur Negative LEU/UL (Negative); Nitrate Urine Positive (Negative); Protein Urine Negative (Negative); Urobilinogen Urine 0.2 mg/dL (<2.0); pH Urine 5.5 (5.0-9.0)
[2022-02-28 06:22] LABS: Add Urine Microscopic? YES; Color Urine Light Yellow (Yellow); Squamous Epithelial Cell Urine Rare /hpf (Few); WBC Urine 0-3 /hpf
--- NOTE | 2022-02-28 06:49 | PC.NURSE ---
Bs at bedside is 424 MD at bedside during accu check
[2022-02-28 06:51] LABS: Glucose Point of Care 424 mg/dl (65-105)
[2022-02-28] MEDS: LACTATED RINGERS 1,000 ML 999 ML IV CONT (06:59)
[2022-02-28 07:01] VITALS: BP 131/83; PULSE 65; RESP 25; O2SAT 100
[2022-02-28 07:31] VITALS: BP 121/82; PULSE 75; RESP 17; O2SAT 100
[2022-02-28 08:01] VITALS: BP 127/85; PULSE 61; RESP 16; O2SAT 100
[2022-02-28 08:10] VITALS: BP 127/85; PULSE 73; RESP 16; O2SAT 100
[2022-02-28 08:13] LABS: Glucose Point of Care 380 mg/dl (65-105)
== END 2022-02-28 08:10 | disposition home or self-care (01) ==
PROVIDERS: Emergency Provider Emergency Medicine; PCP Internal Medicine
DX: E11.65 Type 2 diabetes mellitus with hyperglycemia (principal); I48.91 Unspecified atrial fibrillation; M10.9 Gout, unspecified; G47.33 Obstructive sleep apnea (adult) (pediatric); Z79.84 Long term (current) use of oral hypoglycemic drugs; Z87.442 Personal history of urinary calculi; Z77.22 Contact with and (suspected) exposure to environmental tobacco smoke (acute) (chronic); R94.31 Abnormal electrocardiogram [ECG] [EKG]
CPT/HCPCS: 36415; 80053; 81001; 82948; 85025; 93005; 96360; 96361; 99283; J7030; J7120

== ENCOUNTER 2022-12-22 10:09 | Outpatient (CLI) | payer BC, SELFPAY ==
[2022-12-22 13:10] LABS: Basophils Absolute Auto 0.1 K/mm3 (0.0-0.1); Basophils Percent Auto 1.1 % (0.2-1.2); Eosinophils Absolute Auto 0.1 K/mm3 (0-0.3); Eosinophils Percent Auto 2.3 % (0-4.4); Hematocrit 43.1 % (42.0-52.0); Hemoglobin 14.8 g/dL (14.0-18.0); Immature Granulocyte Absolute 0.01 K/mm3 (0.00-0.031); Immature Granulocyte Percent A 0.2 % (0-0.5); Lymphocytes Absolute Auto 1.38 K/mm3 (0.9-3.2); Lymphocytes Percent Auto 29.2 % (18.3-44.2); Mean Corpuscular HGB Conc 34.3 g/dl (32-36); Mean Corpuscular Hemoglobin 29.8 pg (26-34); Mean Corpuscular Volume 86.9 fl (80-100); Mean Platelet Volume 9.3 fl (7.4-10.4); Monocytes Absolute Auto 0.4 K/mm3 (0.1-0.6); Monocytes Percent Auto 8.9 % (2.6-8.5); Neutrophils Absolute Auto 2.8 K/mm3 (1.3-6.7); Neutrophils Percent Auto 58.3 % (45.5-73.1); Platelet Count Result 144 k/mm3 (150-375); Red Blood Count 4.96 M/mm3 (4.6-6.20); White Blood Count 4.7 K/mm3 (4.5-10.0)
[2022-12-22 13:14] LABS: Alanine Aminotransferase 40 U/L (6-50); Albumin Level 4.1 g/dL (3.5-5.1); Alkaline Phosphatase 64 U/L (38-126); Anion Gap 7 mmol/L (8-16); Aspartate Amino Transferase 53 U/L (17-59); Bilirubin,Total 0.9 mg/dL (0.2-1.3); Blood Urea Nitrogen 13 mg/dL (9-20); Calcium 8.6 mg/dL (8.4-10.2); Carbon Dioxide 28 mmol/L (22-30); Chloride 104 mmol/L (98-107); Estimated Glomerular Filt Rate > 60; Glucose 176 mg/dL (65-110); Potassium 3.6 mmol/L (3.4-5.0); Sodium 139 mmol/L (137-145)
[2022-12-22 13:40] LABS: Hemoglobin A1C 5.8 % (<5.7)
[2022-12-22 13:42] LABS: Free T4 Free Thyroxine 1.07 ng/mL (0.78-2.19)
[2022-12-22 13:45] LABS: Prostate Specific Antigen 1.4 ng/mL (< OR = 4.0)
[2022-12-22 13:46] LABS: Creatinine Urine 171.7 mg/dL
[2022-12-22 13:51] LABS: MALB Creatinine Ratio 46.8 mg/g (0-30); Microalbumin Urine Random 80.4 mg/L (0-16.7)
[2022-12-26 21:34] LABS: Triiodothyronine T3 Free 3.4 pg/mL (2.3-4.2)
== END 2022-12-22 10:10 | disposition home or self-care (01) ==
LOC: ANHGOSHLAB 10:09
PROVIDERS: PCP Internal Medicine; Visit Provider Nurse Practitioner
DX: E11.9 Type 2 diabetes mellitus without complications (principal); Z12.5 Encounter for screening for malignant neoplasm of prostate
CPT/HCPCS: 36415; 80053; 82043; 83036; 84153; 84439; 84443; 84481; 85025; G0103

== ENCOUNTER 2023-04-17 10:04 | Emergency (ER) | payer BC, SELFPAY ==
--- NOTE | ~2023-04-17 | XR_ITS ---
XR foot RT min 3V DATE: 04/17/2023 10:20 INDICATION: Rollerskating injury. Pain, swelling of forefoot TECHNIQUE: 4 views COMPARISON: None FINDINGS: There is severe posterior calcaneal enthesopathy and mild plantar calcaneal enthesopathy. Mild osteoarthritis at the first metatarsophalangeal joint. No fracture or dislocation, periosteal reaction or bone destruction is detected. IMPRESSION: Calcaneal enthesopathy Mild first metatarsophalangeal osteoarthritis No fracture or dislocation is detected Reviewed, dictated and finalized at location A.
--- NOTE | 2023-04-17 10:11 | ED.LOWEXIN ---
HPI - Extremity Injury (Lower) General Chief Complaint: Extremity Injury, Lower Stated Complaint: Foot pain Time Seen by Provider: 04/17/23 10:07 Source: patient Mode of arrival: ambulatory Limitations: no limitations History of Present Illness HPI Narrative: Andrews is a 52-year-old male patient presenting to the clinic today with complaints right foot pain x1 week. He reports he was rollerblading and thinks he may have injured it he has pain to the base of the right great toe and to the bottom foot. Does have history of gout Related Data Home Medications Medication Instructions Recorded Confirmed metoprolol tartrate 50 mg tablet 50 mg PO Q12H 03/18/21 04/17/23 Allergies Allergy/AdvReac Type Severity Reaction Status Date / Time No Known Allergies Allergy Unknown Verified 04/17/23 10:07 Review of Systems Review of Systems: Pertinent positives per HPI. Patient denies any fever, chills, rash, headache, visual changes, dizziness, cough, runny nose, sore throat, shortness of breath, chest pain, palpitations, nausea, vomiting, diarrhea, constipation, abdominal pain, or any urinary issues. [facility] Past Medical History Medical History Atrial fibrillation Elbow pain Gout ENEDINA (obstructive sleep apnea) The patient does not currently have a CPAP or BiPAP machine but recently was tested for sleep apnea he stated that he did the overnight study. 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 The patient desires to be a full code. He has 2 children who are healthy. Patient is a lifelong nonsmoker but did get exposed to secondhand smoke as a child. The patient occasionally drinks on holidays occasionally rarely. Caffeine-lots Smoking status: Never smoker Second hand tobacco smoke exposure: Yes (as a child) Alcohol intake: current Alcohol use details: Pt drinks rarely. 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 There is no relevant family history pertinent to the patient complaint. Exam Narrative: General: Well-developed, well nourished, in no apparent distress Head: Normocephalic, atraumatic. Cardio: Regular rate and rhythm, s1 and s2 normal, no murmur appreciated. Resp: Clear to auscultation bilaterally, no rhonchi, rales, wheezing or rubs. Musculoskeletal: No deformity, tender to palpation over the joint/base of the right great toe with redness and swelling and to the lateral midfoot, pain with flexion and extension of the right great toe, muscle strength strong and equal, pe
[2023-04-17 10:12] VITALS: BP 153/104; PULSE 79; RESP 16; O2SAT 100
== END 2023-04-17 10:48 | disposition home or self-care (01) ==
PROVIDERS: Emergency Provider Nurse Practitioner Family; PCP Family Medicine
DX: M10.9 Gout, unspecified (principal); M19.071 Primary osteoarthritis, right ankle and foot; I48.91 Unspecified atrial fibrillation; Z96.0 Presence of urogenital implants
CPT/HCPCS: 73630; 99213; G0463

== ENCOUNTER 2023-05-08 11:51 | Emergency (ER) | payer BC, SELFPAY ==
[2023-05-08 12:05] VITALS: BP 117/105; PULSE 143; RESP 16; TEMP 35.7; O2SAT 100
[2023-05-08 12:05] LABS: Glucose Point of Care 450 mg/dl (65-105)
--- NOTE | 2023-05-08 12:11 | ED.GENADULT ---
HPI - General Adult General Chief complaint: Unspecified Stated complaint: High Blood Sugar Source: patient and RN notes reviewed History of Present Illness HPI narrative: 52 yo M presents to urgent care with complaints of high blood sugar. Pt states he woke up this morning feeling fatigued so he took his blood sugar and it was 350 at home. Pt presents to urgent care with a BS of 450 mg/dl. Pt admits to drinking chocolate milk before he came. Pt is also found to be tachycardic in urgent care. Pt admits to not taking his metoprolol and metformin as he should but did take them this morning at 10 am. Pt denies any chest pain, SOB, dizziness, vomiting, diarrhea, fevers, or chills. Pt states he had a sore throat and congestion this past week and was seen at his PCP's office this past where he tested negative for strep throat and placed on Amoxicillin. Related Data Home Medications Medication Instructions Recorded Confirmed metoprolol tartrate 50 mg tablet 50 mg PO Q12H 03/18/21 05/08/23 aspirin 81 mg tablet,delayed 81 mg PO DAILY 05/08/23 05/08/23 release Allergies Allergy/AdvReac Type Severity Reaction Status Date / Time No Known Allergies Allergy Unknown Verified 05/08/23 12:00 Review of Systems Review of Systems: CONSTITUTIONAL: Denies fever, chills, or sweats. + lethargy. EYES: Denies visual changes, redness, or discharge. ENT: Denies otalgia and sore throat CARDIOVASCULAR: Denies chest pain, palpitations, or edema. RESPIRATORY: Denies cough or dyspnea. GASTROINTESTINAL: Denies abdominal pain, nausea, vomiting, or diarrhea. GENITOURINARY: Denies dysuria or hematuria. SKIN: Denies rash or itching. MUSCULOSKELETAL: Denies back pain, joint pain, or myalgia. NEUROLOGIC: Denies headache, numbness, or weakness. Pertinent positives per HPI. [facility]LY [facility] Past Medical History Medical History Atrial fibrillation Elbow pain Gout ENEDINA (obstructive sleep apnea) The patient does not currently have a CPAP or BiPAP machine but recently was tested for sleep apnea he stated that he did the overnight study. 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 The patient desires to be a full code. He has 2 children who are healthy. Patient is a lifelong nonsmoker but did get exposed to secondhand smoke as a child. The patient occasionally drinks on holidays occasionally rarely. Caffeine-lots Smoking status: Never smoker Second hand tobacco smoke exposure: Yes (as a child) Alcohol intake: current Alcohol use details: Pt drinks rarely. 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
--- NOTE | 2023-05-08 12:22 | ECG_ITS ---
Measurements Intervals [place] Rate: 142 P: [place]: 0 QRS: 51 QRSD: 85 T: 30 QT: 275 QTc: 423 Interpretive Statements ATRIAL FLUTTER/TACHYCARDIA WITH RAPID VENTRICULAR RESPONSE NONSPECIFIC ST ABNORMALITY ABNORMAL ECG COMPARED TO ECG 02/28/2022 05:02:10 ATRIAL FLUTTER NOW PRESENT Electronically Signed On 05-09-2023 9:23:47 CDT by Qamar Chavis M.D.
[2023-05-08 12:25] VITALS: BP 112/90; PULSE 142
--- NOTE | 2023-05-08 12:27 | PC.NURSE ---
1220 Heart rate in 140s in triage, EKG completed and shown to provider. Patient denies chest pain or shortness of breath. Patient relates that he does have a history of atrial fibrillation for which he takes Metoprolol; patient admits to not taking meds as he should but did take it today at 1000. 1220 Provider spoke to patient and regarding transfer to hospital via ambulance and they refuse; in route to transport patient to the hospital, patient lying supine on exam table without complaints. 1225 patient report called to LIZ Vásquez at [place] [facility].
== END 2023-05-08 12:36 | disposition short-term general hospital (02) ==
PROVIDERS: Emergency Provider Nurse Practitioner Family; PCP Internal Medicine
DX: R73.9 Hyperglycemia, unspecified (principal); I48.91 Unspecified atrial fibrillation; Z79.82 Long term (current) use of aspirin
CPT/HCPCS: 82948; 93005; 99213; G0463

== ENCOUNTER 2023-05-08 12:52 | Observation (INO) | payer BC, SELFPAY ==
[2023-05-08] VITALS (13 sets, daily range): BP systolic 119–158; BP diastolic 71–110; PULSE 75–146; RESP 18–20; TEMP 36.3–36.5; O2SAT 97–100
--- NOTE | ~2023-05-08 | XR_ITS ---
XR chest 2V DATE: 05/08/2023 13:20 INDICATION: Tachycardia TECHNIQUE: PA and lateral views COMPARISON: 12/05/2020 portable AP chest FINDINGS: Normal heart size. No hilar or mediastinal enlargement. No pulmonary infiltrate or consolid ation, pleural effusion or pulmonary vascular congestion or pneumothorax. Suspected calcified gallstone overlying right upper quadrant. Degenerative spurring of the thoracic and lumbar spine. IMPRESSION: No active cardiopulmonary disease Suspected calcified gallstone Reviewed, dictated and finalized at location A.
--- NOTE | 2023-05-08 12:54 | ECG_ITS ---
Measurements Intervals [place] Rate: 141 P: [place]: 0 QRS: 57 QRSD: 102 T: 47 QT: 279 QTc: 427 Interpretive Statements ATRIAL FLUTTER/TACHYCARDIA WITH RAPID VENTRICULAR RESPONSE NONSPECIFIC ST ABNORMALITY ABNORMAL ECG COMPARED TO ECG 05/08/2023 12:20:54 NO SIGNIFICANT CHANGES Electronically Signed On 05-09-2023 9:24:18 CDT by Qamar Chavis M.D.
[2023-05-08 13:20] LABS: Basophils Absolute Auto 0.1 K/mm3 (0.0-0.1); Basophils Percent Auto 1.2 % (0.2-1.2); Eosinophils Absolute Auto 0.2 K/mm3 (0-0.3); Eosinophils Percent Auto 3.1 % (0-4.4); Hematocrit 45.9 % (42.0-52.0); Hemoglobin 16.1 g/dL (14.0-18.0); Immature Granulocyte Absolute 0.02 K/mm3 (0.00-0.031); Immature Granulocyte Percent A 0.3 % (0-0.5); Lymphocytes Absolute Auto 1.79 K/mm3 (0.9-3.2); Lymphocytes Percent Auto 26.6 % (18.3-44.2); Mean Corpuscular HGB Conc 35.1 g/dl (32-36); Mean Corpuscular Hemoglobin 30.5 pg (26-34); Mean Corpuscular Volume 86.9 fl (80-100); Mean Platelet Volume 9.7 fl (7.4-10.4); Monocytes Absolute Auto 0.4 K/mm3 (0.1-0.6); Monocytes Percent Auto 6.3 % (2.6-8.5); Neutrophils Absolute Auto 4.2 K/mm3 (1.3-6.7); Neutrophils Percent Auto 62.5 % (45.5-73.1); Platelet Count Result 169 k/mm3 (150-375); Red Blood Count 5.28 M/mm3 (4.6-6.20); Red Cell Distribution Width 12.5 % (11.5-14.5); White Blood Count 6.7 K/mm3 (4.5-10.0)
[2023-05-08 13:32] LABS: Alanine Aminotransferase 29 U/L (6-50); Alkaline Phosphatase 131 U/L (38-126); Anion Gap 8 mmol/L (8-16); Aspartate Amino Transferase 35 U/L (17-59); Bilirubin,Total 0.7 mg/dL (0.2-1.3); Blood Urea Nitrogen 22 mg/dL (9-20); Calcium 8.9 mg/dL (8.4-10.2); Carbon Dioxide 26 mmol/L (22-30); Chloride 98 mmol/L (98-107); Estimated CRCL calculation 85 ml/min; Estimated Glomerular Filt Rate > 60; Glucose 421 mg/dL (65-110); Lipase 225 U/L (23-300); Potassium 4.2 mmol/L (3.4-5.0); Sodium 132 mmol/L (137-145)
[2023-05-08 13:40] LABS: Partial Thromboplastin Time 23.8 SECONDS (22.3-36.8)
--- NOTE | 2023-05-08 13:50 | ED.ARRPALP ---
HPI - Arrhythmia/Palpitations General Chief Complaint: Arrhythmia/Palpitations Stated Complaint: fast heart rate, high bs Time Seen by Provider: 05/08/23 13:03 History of Present Illness HPI narrative: Patient is a 52-year-old male with a history of diabetes, paroxysmal A-fib presenting with fast heart rate. Patient states that he went to urgent care this morning as his glucose at home was in the 400s. He was told to come to the ER due to a fast heart rate. Patient states that he has some mild palpitations but he denies any chest pain or shortness of breath. No leg swelling or syncope. States that he has had a sore throat for which she saw his PCP who started him on amoxicillin 3 days ago. States that he recently had gout so he has been drinking a lot of water which is making him urinate more. He denies dysuria or hematuria. No fevers or chills, abdominal pain, nausea or vomiting, diarrhea, rashes. Related Data Home Medications Medication Instructions Recorded Confirmed metoprolol tartrate 50 mg tablet 50 mg PO Q12H 03/18/21 05/17/23 aspirin 81 mg tablet,delayed 81 mg PO DAILY 05/08/23 05/17/23 release Allergies Allergy/AdvReac Type Severity Reaction Status Date / Time No Known Allergies Allergy Unknown Verified 05/17/23 09:08 Review of Systems Review of Systems: All systems reviewed & are unremarkable except as noted in HPI and below PMFSH Past Medical History Medical History (Updated 05/18/23 @ 14:07 by Rachel Campbell MD) Gout Noncompliance with medication regimen Obstructive sleep apnea Paroxysmal atrial fibrillation Paroxysmal atrial flutter Renal stones Type 2 diabetes mellitus Surgical History Surgical History History of cystoscopy History of extraction of renal calculus History of renal stent Status post cystourethroscopy with dilation of urethral stricture Family History Family History Sibling Hypertension Cerebrovascular accident Diabetes mellitus Father Heart disease Atrial fibrillation Mother Diabetes mellitus Social History Social History Social History: Surrogate medical decision maker: Kaylin Sutton, spouse. Code status: Full code. Smoking status: Never smoker Second hand tobacco smoke exposure: Yes (as a child) Alcohol intake: current Alcohol use details: Rare alcohol use in moderation. Substance use: former Substance use type: marijuana Last use: in high school Lack of Transportation: No Lack of Food: Never True Current Housing: I Have Housing Concerned About Future Housing: No Difficulty Paying Gas/Electric Bills: No Difficulty Paying for Meds: No Currently Unemployed: No Education: High School Diploma/GED Difficulty w/ Childcare or Family Care: No Living arrangements: with family Additional living arrangements comments: Lives with family in [place]. 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 Spiritual care concerns: No Exam Narrative: GENERAL: Well-appearing, in no acute distress, pleasant and cooperative HEAD: Normocephalic, atraumatic. EYES: PERRLA and EOMI. ENT: Mild posterior pharyngeal erythema, no exudates NECK: Supple. CHEST: Clear to auscultation. No respiratory distress. HEART: Tachycardic, regular rhythm ABDOMEN: Soft, nontender, nondistended EXTREMITIES: Normal range of motion. No edema. SKIN: Warm, dry, no rash. NEURO: No focal deficits. Alert and oriented x3. PSYCH: Normal mood and affect. Course Vital Signs Vital signs: Vital Signs Temperature 97.4 F L 05/08/23 12:57 Pulse Rate 142 H 05/08/23 12:57 Respiratory Rate 20 05/08/23 12:57 Blood Pressure 152/94 H 05/08/23 12:57 Pulse Oximetry 97 05/08/23 12:57 Oxygen Delivery Room Air 05/08/23 12:57
[2023-05-08 13:51] LABS: Troponin I 0.062 ng/mL (0.000-0.034)
[2023-05-08] MEDS: SODIUM CHLORIDE 0.9% IV 1,000 ML 999 ML IV CONT (14:07)
[2023-05-08] MEDS: METOPROLOL TARTRATE INJ 5 MG/5 ML VIAL IV PUSH (14:07)
[2023-05-08 14:42] LABS: Influenza A QL RT-PCR Negative (Negative); Influenza B QL RT-PCR Negative (Negative); SARS-CoV-2 RNA PCR Negative (Negative)
--- NOTE | 2023-05-08 15:21 | ADMGEN ---
This patient, Andrews Sutton, was admitted to IMU Room 203-01 AT 1520. Patient/family oriented to hospital policies and general routines including ID bracelet, bed and alarms, visiting hours, pain management, procedures, bathroom and other care routines, personal items, smoking policy, room service/diet, and visiting hours. Information on how to activate the Rapid Response Team has been discussed. Patient/Family are encouraged to report perceived risks to care and to ask questions if they do not understand what they are told or what they should do.
--- NOTE | 2023-05-08 15:52 | PM.IMHP ---
H&P: HPI History of Present Illness Date/Time: 05/08/23 16:30 Chief Complaint: Fast heart rate. Narrative: This is a 52-year-old male paroxysmal atrial fibrillation/flutter, type 2 diabetes mellitus, and noncompliance with medications who presented to the emergency department for evaluation of a fast heart rate. The patient provides the following history. Last week he developed URI symptoms and he is currently on Augmentin with improvement. The last 2 days however he has felt increasingly fatigued and when he found his glucose to be 350 this morning he went to urgent care. At their facility his glucose was 450 and he was found to be in atrial fibrillation with rapid ventricular response so he was directed to the ED.. He had very brief episode where he had some fluttering in his chest earlier today but that has since resolved although his heart rate is still in the 140s. On arrival to the ED he was given a dose of IV Lopressor 5 mg x 1 without much benefit. Later he received diltiazem 10 mg IV x1 and he has since converted to a normal sinus rhythm. His initial troponin was elevated 0.062 and because of this he is being admitted for close monitoring. He denies denies lightheadedness, dizziness, sweats, chest pain, pleuritic pain, orthopnea, paroxysmal nocturnal dyspnea, nausea, vomiting, and lower extremity edema. She also denies blurry vision, polyuria, and polydipsia. Review of Systems Review of Systems: Twelve systems were reviewed and are negative except for as per HPI. [facility] Past Medical History Medical History (Updated 05/08/23 @ 23:00 by Sarita Iqbal PA-C) Gout Noncompliance with medication regimen Obstructive sleep apnea Paroxysmal atrial fibrillation Paroxysmal atrial flutter Renal stones Type 2 diabetes mellitus Surgical History Surgical History (Updated 05/08/23 @ 15:54 by Sarita Iqbal PA-C) History of cystoscopy History of extraction of renal calculus History of renal stent Status post cystourethroscopy with dilation of urethral stricture Family History Family History Sibling Hypertension Cerebrovascular accident Diabetes mellitus Father Heart disease Atrial fibrillation Mother Diabetes mellitus Social History Social History (Updated 05/08/23 @ 15:55 by Sarita Iqbal PA-C) Social History: Surrogate medical decision maker: Kaylin Sutton, spouse. Code status: Full code. Smoking status: Never smoker Second hand tobacco smoke exposure: Yes (as a child) Alcohol intake: current Alcohol use details: Rare alcohol use in moderation. Substance use: former Substance use type: marijuana Last use: in high school Lack of Transportation: No Lack of Food: Never True Current Housing: I Have Housing Concerned About Future Housing: No Difficulty Paying Gas/Electric Bills: No Difficulty Paying for Meds: No Currently Unemployed: No Education: High School Diploma/GED Difficulty w/ Childcare or Family Care: No Living arrangements: with family Additional living arrangements comments: Lives with family in [place]. 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 Spiritual care concerns: No Meds Home Medications and Allergies Home Medications Medication Instructions Recorded Confirmed Type metoprolol tartrate 50 mg tablet 50 mg PO Q12H 03/18/21 05/08/23 History metformin 500 mg tablet 500 mg PO BID #180 tabs 02/14/23 05/08/23 Rx aspirin 81 mg tablet,delayed 81 mg PO DAILY 05/08/23 05/08/23 History release Allergies Allergy/AdvReac Type Severity Reaction Status Date / Time No Known Allergies Allergy Unknown Verified 05/08/23 12:00 Vital Signs Vital Signs - 24 hr 05/08/23 12:57 05/08/23 13:16 05/08/23 14:07 Temperature 97.4 F L Pulse Rate 142 H 143 H 144 H Respiratory Rate 20 Blood Pressure 152/94 H Pulse
[2023-05-08 16:14] LABS: Glucose Point of Care 287 mg/dl (65-105)
[2023-05-08 16:30] LABS: Troponin I 0.078 ng/mL (0.000-0.034)
--- NOTE | 2023-05-08 16:30 | PC.NURSE ---
1600 Called SABINE Vera to update on patient status and receive further orders. Stated she would be on the floor to see the patient soon.
[2023-05-08 17:05] LABS: Hemoglobin A1C 9.4 % (<5.7)
[2023-05-08] MEDS: metFORMIN HCL 500 MG TABLET PO (17:07)
[2023-05-08] MEDS: INSULIN ASPART (*BKC) 100 UNITS/ML SUB-Q ×2 (17:08→21:19)
[2023-05-08] MEDS: dilTIAZem HCl INJ 25 MG/5 ML VIAL 10 MG IV PUSH (18:08)
[2023-05-08 20:34] LABS: Glucose Point of Care 268 mg/dl (65-105)
[2023-05-08 20:36] LABS: Troponin I 0.101 ng/mL (0.000-0.034)
[2023-05-08] MEDS: METOPROLOL TARTRATE 50 MG TAB PO (21:19)
--- NOTE | 2023-05-08 21:58 | PHAR ---
verified augmentin 875/125mg tab and sent back to IMU. Starting count #9
[2023-05-09] VITALS (12 sets, daily range): BP systolic 122–135; BP diastolic 75–79; PULSE 72–88; RESP 17–21; TEMP 36.3–36.6; O2SAT 98–100; BMI 31.6
--- NOTE | 2023-05-09 | ECHO_ITS ---
Patient Info Name: Andrews Sutton Age: 52 years : 1970 Gender: Male Ht: 73 in Wt: 239 lbs BSA: 2.39 m2 HR: 76 bpm BP: 122 / 78 mmHg Heart Rhythm: Sinus Rhythm Technical Quality: Fair Exam Date: 05/09/2023 9:33 AM Exam Location: Echo Lab Patient Status: Inpatient Admit Date: 05/08/2023 Staff Ordering Physician: Sarita Iqbal PA-C Gore Maker: Mohini Gloria RDCS Attending Provider: Aimee Garcia DO Referring Physician: Farida SEVILLA; Exam Type: CA echo doppler color flow Study Info Indications - AFIB/FLUTTER W RVR, ELEVATED TROPNIN Complete two-dimensional, color flow and Doppler transthoracic echocardiogram is performed. Summary 1. Complete two-dimensional, color flow and Doppler transthoracic echocardiogram is performed. 2. Left ventricular chamber dimension is normal. 3. Left ventricular systolic function is normal, estimated at 55-60%. 4. There is mildly increased left ventricular wall thickness. 5. The left ventricular diastolic function is normal. 6. Right ventricular chamber dimension is mildly enlarged. 7. Right ventricular systolic function is reduced. 8. Left atrial chamber dimension is mildly enlarged. 9. Right atrial chamber dimension is mildly enlarged. 10. There is mild mitral valve regurgitation. 11. There is mild tricuspid valve regurgitation. 12. There is mild pulmonic regurgitation. Left Ventricle Left ventricular chamber dimension is normal. Left ventricular systolic function is normal, estimated at 55-60%. There is mildly increased left ventricular wall thickness. The left ventricular diastolic function is normal. Right Ventricle Right ventricular chamber dimension is mildly enlarged. Right ventricular systolic function is reduced. Left Atria Left atrial chamber dimension is mildly enlarged. Right Atria Right atrial chamber dimension is mildly enlarged. Atrial Septum Intact interatrial septum visualized by color flow imaging. Aortic Valve The aortic valve is trileaflet. There is no aortic valve sclerosis. There is no aortic valve stenosis. There is trace aortic valve regurgitation. Pulmonic Valve The pulmonic valve is normal. There is no pulmonic valve stenosis. There is mild pulmonic regurgitation. Mitral Valve The mitral valve has normal leaflets. There is no mitral valve stenosis. There is mild mitral valve regurgitation. Tricuspid Valve The tricuspid valve leaflets are normal. There is no significant tricuspid valve stenosis. There is mild tricuspid valve regurgitation. No pulmonary hypertension, estimated pulmonary arterial systolic pressure is 34 mmHg. Pericardium/Pleural The pericardium appears normal. There is no pericardial effusion. Inferior Vena Cava Normal inferior vena cava with >50% collapse upon inspiration consistent with normal right atrial pressure, 10 mmHg. Aorta The aortic root size at the sinus of Valsalva is normal. Left Ventricular Outflow Tract Name Value Normal LVOT 2D LVOT Diameter 2.2 cm LVOT Doppler LVOT Peak Gradient 3 mmHg LVOT Mean Gradient 2 mmHg LVOT VTI 15 cm LVOT VTI/AV VTI Rat
[2023-05-09 05:13] LABS: Hematocrit 43.3 % (42.0-52.0); Hemoglobin 14.6 g/dL (14.0-18.0); Mean Corpuscular HGB Conc 33.7 g/dl (32-36); Mean Corpuscular Hemoglobin 30.1 pg (26-34); Mean Corpuscular Volume 89.3 fl (80-100); Mean Platelet Volume 10.6 fl (7.4-10.4); Platelet Count Result 155 k/mm3 (150-375); Red Blood Count 4.85 M/mm3 (4.6-6.20); Red Cell Distribution Width 12.8 % (11.5-14.5); White Blood Count 6.9 K/mm3 (4.5-10.0)
[2023-05-09 05:26] LABS: Anion Gap 6 mmol/L (8-16); Blood Urea Nitrogen 20 mg/dL (9-20); Calcium 8.5 mg/dL (8.4-10.2); Carbon Dioxide 27 mmol/L (22-30); Chloride 103 mmol/L (98-107); Estimated CRCL calculation 85 ml/min; Estimated Glomerular Filt Rate > 60; Glucose 263 mg/dL (65-110); Potassium 3.7 mmol/L (3.4-5.0); Sodium 136 mmol/L (137-145)
[2023-05-09 07:43] LABS: Glucose Point of Care 297 mg/dl (65-105)
[2023-05-09] MEDS: METOPROLOL TARTRATE 50 MG TAB PO (08:03)
[2023-05-09] MEDS: INSULIN ASPART (*BKC) 100 UNITS/ML SUB-Q ×2 (08:04→12:26)
[2023-05-09] MEDS: metFORMIN HCL 500 MG TABLET PO ×2 (08:04→16:35)
[2023-05-09] MEDS: ENOXAPARIN 40 MG/0.4 ML SYRINGE SUB-Q (08:04)
[2023-05-09] MEDS: ASPIRIN 81 MG ENTERIC TABLET PO (08:04)
[2023-05-09 11:14] LABS: Troponin I 0.128 ng/mL (0.000-0.034)
--- NOTE | 2023-05-09 12:26 | PM.IMPN ---
Progress Note: A&P Assessment and Plan (1) Atrial flutter with rapid ventricular response: Code(s): I48.92 - Unspecified atrial flutter Status: Acute (2) Elevated troponin: Code(s): R79.89 - Other specified abnormal findings of blood chemistry Status: Acute (3) Type 2 diabetes mellitus with hyperglycemia: Code(s): E11.65 - Type 2 diabetes mellitus with hyperglycemia Status: Acute (4) Noncompliance with medication regimen: Code(s): Z91.148 - Patient's other noncompliance with medication regimen for other reason Status: Acute Plan 52-year-old male with past medical history of diabetes and proximal atrial fibrillation presented with palpitation. His blood sugar has been running recently and 400. No chest pain or shortness of breath. He was recently had sore throat and was started on amoxicillin. Also had recent gouty attack. The ER he was noted to have heart rate in 140s. EKG with atrial flutter. Vitals stable. Labs with hyperglycemia 421. Lipase was normal. Received a dose of IV Lopressor times followed by diltiazem 10 mg IV converted to normal sinus rhythm. Initial troponin elevated at 0.062. Subsequent level has been elevated with up for trend. Elevated troponin could be related to AFib with RVR. Will consult Cardiology for further evaluation. Echocardiogram pending. May need stress test to rule out ischemic heart disease. He recently went off of metoprolol which has been resumed. A1c is 9.4%. In november 2022 was 5.8 community educator consultation. On metformin at home. On aspirin. Check LDL. Continue diet control. Follow up as an outpatient basis for adjustment of medication Echo 2020 with EF 55-60% no significant valvular abnormality.. TSH normal Subjective Date/time seen: 05/09/23 12:26 Interval history: 52-year-old male with past medical history of diabetes and proximal atrial fibrillation presented with palpitation. His blood sugar has been running recently and 400. No chest pain or shortness of breath. He was recently had sore throat and was started on amoxicillin. Also had recent gouty attack. The ER he was noted to have heart rate in 140s. EKG with atrial flutter. Vitals stable. Labs with hyperglycemia 421. Lipase was normal. Received a dose of IV Lopressor times followed by diltiazem 10 mg IV converted to normal sinus rhythm. Initial troponin elevated at 0.062. Subsequent level has been elevated with up for trend. Elevated troponin could be related to AFib with RVR. Will consult Cardiology for further evaluation. Echocardiogram pending. May need stress test to rule out ischemic heart disease. A1c is 9.4%. diabetic educator consultation. On metformin at home No chest pain no shortness of breath. Back to sinus rhythm. He has stopped metoprolol about a month ago Review of Systems Review of Systems: All systems reviewed & are unremarkable except as noted in HPI and below Exam Narrative: General: Well-developed, nontoxic-appearing male sitting up in bed in no acute distress. HEENT: PERRL, EOMI. Sclera anicteric. Oral mucosa moist. Oropharynx clear. Neck: Supple. Respiratory: Lungs are clear to auscultation bilaterally. Cardiovascular: Regular rate and rhythm Gastrointestinal: Abdomen is soft, nontender, and nondistended with positive bowel sounds. Skin: Warm and dry. No rash or lesions on limited exam. Extremities: No cyanosis, clubbing, or edema. Radial and pedal pulses intact. Neurological: Alert. Cranial nerves 2-12 are grossly intact. No gross focal deficits to casual conversation. Psychiatric: Pleasant and cooperative with normal mood and affect. Judgment and insight intact. Objective Data Vital Signs Vital Signs: Vital Signs - 24 hr 05/08/23 12:57 05/08/23 13:16 05/08/23 14:07 Temperature 97.4 F L Pulse Rate 142 H 143 H 144 H Respiratory Rate 20 Blood Pressure 152/94 H Pulse Oximetry 97 Oxygen Delivery Ro
[2023-05-09 13:15] LABS: Cholesterol 154 mg/dL (0-200); HDL Direct 21 mg/dL; Triglycerides 297 mg/dL (<150)
[2023-05-09 13:26] LABS: LDL Cholesterol Direct 86 mg/dL
--- NOTE | 2023-05-09 14:57 | PM.CNCAR ---
Assessment and Plan Assessment and plan (1) Elevated troponin: Code(s): R79.89 - Other specified abnormal findings of blood chemistry Status: Acute (2) Paroxysmal atrial flutter: Code(s): I48.92 - Unspecified atrial flutter Status: Acute Plan This is a 52-year-old man with a history of atrial fibrillation and more recent history of atrial flutter. He presents with concerning hyperglycemia and in that setting also had a recurrence of asymptomatic atrial flutter with two-to-one conduction. After receiving intravenous metoprolol and diltiazem yesterday evening he is back in sinus rhythm and again is asymptomatic. For some reason troponin levels were sampled and are slightly elevated. In my opinion this is not consistent with her concerning for acute coronary syndrome and I do not believe the patient needs a stress test at this time he clearly has evidence of right ventricular enlargement and dysfunction in El evidence of the beginnings of cor pulmonale due to untreated sleep apnea. The obvious cardiac recommendations at this time are to resume his beta-beti as well as his CPAP. We should try to see that he has appropriate follow-up with a sleep medicine physician since he is not using his CPAP for reasons described above. I will make sure the my office reaches out to him again to arrange for follow-up with Dr. Brown. The patient canceled his last appointment in July of 2022 indicating he would call to reschedule and he did not. Cardiac-coffey he appears to be stable for discharge in my opinion Hernán Caro MD [facility] History of Present Illness History of Present Illness Consult date/time: 05/09/23 14:57 Reason For Visit: Atrial Flutter,Elevated Troponin Narrative: This is a 52-year-old man I am seeing at the request of the hospitalist because of a elevation of troponin. He is a patient that is known to my partner, Dr. Garrett. Patient has no prior history of coronary heart disease he does have a history of atrial fibrillation and atrial flutter which is been attributed to sleep apnea. He has been seen by Dr. Garrett in the past in the hospital and in the office for these arrhythmias. He initially presented in July of 2018 with AFib in RVR. He had another presentation in November of 2020 with atrial flutter with RVR. He was converted with intravenous amiodarone at that time in the hospital and started on metoprolol therapy. He was also for a short time started on apixaban for systemic anticoagulation but due to his low chads Vasc score the the this was stopped. He was seen in the office for follow-up of these arrhythmias most recently was in December of 2021 after which he canceled his follow-up in did not reschedule. He also has a history of sleep apnea that was diagnosed after his initial presentation with outpatient sleep study. CPAP has been prescribed he used it for a short time he thinks for several months and then discontinued because he thought the humidity was not adjusted properly and rather than consulting with his sleep medicine physician he simply discontinued use of the device. He stopped taking his metoprolol time ago he is not very specific about how long that was. He came to the urgent care center yesterday because of simply feeling weak and fatigued. He says he took his blood sugar and it was in excess of 400 so he came to the urgent care unit. And there he was found to be in atrial flutter. The patient says he was unaware of this in the way of the sense of palpitations or tachycardia. In the emergency room he received some intravenous metoprolol and later an intravenous injection of diltiazem was administered as well. He then converted to sinus rhythm. His previous metoprolol regimen which was metoprolol tartrate 25 mg q.12 hours has been resumed. He is asymptomatic and does not have any problems or complaints at this time. For reasons that are not specified his troponin levels were sampled at t
[2023-05-09 16:27] LABS: Glucose Point of Care 299 mg/dl (65-105)
[2023-05-09 16:27] LABS: Glucose Point of Care 175 mg/dl (65-105)
--- NOTE | 2023-05-09 16:38 | PM.DS ---
DS: Admitting Diagnosis Discharge Date 05/09/2023 Admitting Diagnosis AFib DS: Discharge Diagnosis Discharge Diagnosis (1) Atrial flutter with rapid ventricular response: Code(s): I48.92 - Unspecified atrial flutter Status: Acute (2) Elevated troponin: Code(s): R79.89 - Other specified abnormal findings of blood chemistry Status: Acute (3) Type 2 diabetes mellitus with hyperglycemia: Code(s): E11.65 - Type 2 diabetes mellitus with hyperglycemia Status: Acute (4) Noncompliance with medication regimen: Code(s): Z91.148 - Patient's other noncompliance with medication regimen for other reason Status: Acute DS: Summary Hospital Course Hospital Course: 52-year-old male with past medical history of diabetes and proximal atrial fibrillation presented with palpitation.? His blood sugar has been running recently and 400.? No chest pain or shortness of breath.? He was recently had sore throat and was started on amoxicillin.? Also had recent gouty attack.? The ER he was noted to have heart rate in 140s.? EKG with atrial flutter.? Vitals stable.? Labs with hyperglycemia 421.? Lipase was normal.? Received a dose of IV Lopressor times followed by diltiazem 10 mg IV converted to normal sinus rhythm.? Initial troponin elevated at 0.062.? Subsequent level has been elevated with up for trend.? Elevated troponin could be related to AFib with RVR.? Consulted cardiology. Echocardiogram with normal EF and no significant valvular abnormality.? He recently went off of metoprolol which has been resumed will need to be continued. A1c is 9.4%.? In 2022 was 5.8 rn diabetes educator consultation.? On metformin at home.? On aspirin.? LDL 86. Continue diet control.? Follow up as an outpatient basis for adjustment of medication and further evaluation. Okay per pediatric orthodontist for discharge Echo 2020 with EF 55-60% no significant valvular abnormality..? TSH normal Time Spent with Patient Time attestation: Total time spent providing and/or coordinating discharge services: 35 minutes Exam Narrative: General: Well-developed, nontoxic-appearing male sitting up in bed in no acute distress. HEENT: PERRL, EOMI. Sclera anicteric. Oral mucosa moist. Oropharynx clear. Neck: Supple. Respiratory: Lungs are clear to auscultation bilaterally. Cardiovascular: Regular rate and rhythm Gastrointestinal: Abdomen is soft, nontender, and nondistended with positive bowel sounds. Skin: Warm and dry. No rash or lesions on limited exam. Extremities: No cyanosis, clubbing, or edema. Radial and pedal pulses intact. Neurological: Alert. Cranial nerves 2-12 are grossly intact. No gross focal deficits to casual conversation. Psychiatric: Pleasant and cooperative with normal mood and affect. Judgment and insight intact. DS: Data Data Completed and Pending Completed studies during hospitalization: Exam Type: ? ? CA echo doppler color flow Study Info Indications ?? ? - AFIB/FLUTTER W RVR, ELEVATED TROPNIN Complete two-dimensional, color flow and Doppler transthoracic echocardiogram is performed. Account #: ? ? [id number] Summary ? 1. Complete two-dimensional, color flow and Doppler transthoracic echocardiogram is performed. ? 2. Left ventricular chamber dimension is normal. ? 3. Left ventricular systolic function is normal, estimated at 55-60%. ? 4. There is mildly increased left ventricular wall thickness. ? 5. The left ventricular diastolic function is normal. ? 6. Right ventricular chamber dimension is mildly enlarged. ? 7. Right ventricular systolic function is reduced. ? 8. Left atrial chamber dimension is mildly enlarged. ? 9. Right atrial chamber dimension is mildly enlarged. ? 10. There is mild mitral valve regurgitation. ? 11. There is mild tricuspid valve regurgitation. ? 12. There is mild pulmonic regurgitation. Left Ventricle ? Left ventricular chamber dimension is normal. ? Left ventricular systol
== END 2023-05-09 17:11 | disposition home or self-care (01) ==
LOC: ANHED 13:20 → ANHIMU 15:30
PROVIDERS: Emergency Medicine; Physician Assistant; Admitting Provider Student in an Organized Health Care Education/Training Program; Emergency Provider Emergency Medicine; PCP Internal Medicine; Visit Provider Internal Medicine
DX: I48.92 Unspecified atrial flutter (principal); R77.8 Other specified abnormalities of plasma proteins; E11.65 Type 2 diabetes mellitus with hyperglycemia; R00.0 Tachycardia, unspecified; Z91.198 Patient's noncompliance with other medical treatment and regimen for other reason; M10.9 Gout, unspecified; G47.33 Obstructive sleep apnea (adult) (pediatric); Z99.89 Dependence on other enabling machines and devices; I48.0 Paroxysmal atrial fibrillation; Z20.822 Contact with and (suspected) exposure to COVID-19; J02.9 Acute pharyngitis, unspecified; I08.1 Rheumatic disorders of both mitral and tricuspid valves; R53.83 Other fatigue; R94.31 Abnormal electrocardiogram [ECG] [EKG]; Z77.22 Contact with and (suspected) exposure to environmental tobacco smoke (acute) (chronic); F10.90 Alcohol use, unspecified, uncomplicated; Z79.82 Long term (current) use of aspirin; Z79.84 Long term (current) use of oral hypoglycemic drugs; Z79.899 Other long term (current) drug therapy; Z82.49 Family history of ischemic heart disease and other diseases of the circulatory system; Z83.3 Family history of diabetes mellitus
CPT/HCPCS: 36415; 71046; 80048; 80053; 80061; 82948; 83036; 83690; 83735; 84443; 84484; 85025; 85027; 85610; 85730; 87636; 93005; 93306; 96361; 96372; 96374; 96375; 99285; A9270; G0378; J1650; J1815; J7030

== ENCOUNTER 2023-05-26 09:37 | Outpatient (CLI) | payer BC, SELFPAY ==
[2023-05-26 10:34] LABS: Alanine Aminotransferase 38 U/L (6-50); Albumin Level 4.4 g/dL (3.5-5.1); Alkaline Phosphatase 86 U/L (38-126); Aspartate Amino Transferase 32 U/L (17-59); Bilirubin,Total 1.1 mg/dL (0.2-1.3)
== END 2023-05-26 09:38 | disposition home or self-care (01) ==
LOC: ANHLAB 09:40
PROVIDERS: PCP Internal Medicine; Visit Provider Podiatrist Foot & Ankle Surgery
DX: B35.1 Tinea unguium (principal)
CPT/HCPCS: 36415; 80076

== ENCOUNTER 2023-08-10 11:22 | Outpatient (CLI) | payer BC, SELFPAY ==
[2023-08-10 18:20] LABS: Basophils Absolute Auto 0.1 K/mm3 (0.0-0.1); Basophils Percent Auto 1.3 % (0.2-1.2); Eosinophils Absolute Auto 0.2 K/mm3 (0-0.3); Eosinophils Percent Auto 3.3 % (0-4.4); Hematocrit 43.4 % (42.0-52.0); Hemoglobin 15.4 g/dL (14.0-18.0); Immature Granulocyte Absolute 0.02 K/mm3 (0.00-0.031); Immature Granulocyte Percent A 0.4 % (0-0.5); Lymphocytes Percent Auto 28.4 % (18.3-44.2); Mean Corpuscular HGB Conc 35.5 g/dl (32-36); Mean Corpuscular Hemoglobin 30.6 pg (26-34); Mean Corpuscular Volume 86.1 fl (80-100); Mean Platelet Volume 9.7 fl (7.4-10.4); Monocytes Absolute Auto 0.4 K/mm3 (0.1-0.6); Neutrophils Absolute Auto 2.6 K/mm3 (1.3-6.7); Neutrophils Percent Auto 57.6 % (45.5-73.1); Platelet Count Result 141 k/mm3 (150-375); Red Blood Count 5.04 M/mm3 (4.6-6.20); Red Cell Distribution Width 13.4 % (11.5-14.5); White Blood Count 4.6 K/mm3 (4.5-10.0)
[2023-08-10 18:52] LABS: Cholesterol 185 mg/dL (0-200); HDL Direct 28 mg/dL; Triglycerides 368 mg/dL (<150)
[2023-08-10 19:03] LABS: LDL Cholesterol Direct 90 mg/dL
[2023-08-10 19:05] LABS: Creatinine Urine 103.4 mg/dL
[2023-08-10 19:15] LABS: MALB Creatinine Ratio 46.8 mg/g (0-30); Microalbumin Urine Random 48.4 mg/L (0-16.7)
[2023-08-10 19:21] LABS: Prostate Specific Antigen 1.2 ng/mL (< OR = 4.0)
[2023-08-10 19:28] LABS: Anion Gap 7 mmol/L (8-16); Blood Urea Nitrogen 10 mg/dL (9-20); Calcium 9.1 mg/dL (8.4-10.2); Carbon Dioxide 31 mmol/L (22-30); Chloride 100 mmol/L (98-107); Estimated Glomerular Filt Rate > 60; Glucose 322 mg/dL (65-110); Potassium 4.4 mmol/L (3.4-5.0); Sodium 138 mmol/L (137-145)
[2023-08-10 19:38] LABS: Hemoglobin A1C 13.3 % (<5.7)
== END 2023-08-10 11:23 | disposition home or self-care (01) ==
LOC: ANHGOSHLAB 11:27
PROVIDERS: Nurse Practitioner; PCP Internal Medicine; Visit Provider Clinical Nurse Specialist
DX: E11.65 Type 2 diabetes mellitus with hyperglycemia (principal); Z12.5 Encounter for screening for malignant neoplasm of prostate
CPT/HCPCS: 36415; 80048; 80061; 82043; 83036; 84153; 85025; G0103

== ENCOUNTER 2023-09-08 09:27 | Outpatient (CLI) | payer BC, SELFPAY ==
[2023-09-08 19:20] LABS: Alanine Aminotransferase 25 U/L (6-50); Albumin Level 3.9 g/dL (3.5-5.1); Alkaline Phosphatase 66 U/L (38-126); Anion Gap 5 mmol/L (8-16); Aspartate Amino Transferase 36 U/L (17-59); Bilirubin,Total 0.9 mg/dL (0.2-1.3); Blood Urea Nitrogen 18 mg/dL (9-20); Calcium 9.1 mg/dL (8.4-10.2); Carbon Dioxide 30 mmol/L (22-30); Chloride 104 mmol/L (98-107); Estimated Glomerular Filt Rate > 60; Glucose 140 mg/dL (65-110); Phosphorus 2.7 mg/dL (2.5-4.5); Potassium 4.2 mmol/L (3.4-5.0); Sodium 139 mmol/L (137-145)
[2023-09-08 22:35] LABS: Hemoglobin A1C 9.8 % (<5.7)
== END 2023-09-08 09:28 | disposition home or self-care (01) ==
LOC: ANHGOSHLAB 09:29
PROVIDERS: Nurse Practitioner; PCP Internal Medicine; Visit Provider Podiatrist Foot & Ankle Surgery
DX: B35.1 Tinea unguium (principal); E11.65 Type 2 diabetes mellitus with hyperglycemia; Z12.5 Encounter for screening for malignant neoplasm of prostate
CPT/HCPCS: 36415; 80053; 83036; 84100

== ENCOUNTER 2023-11-09 09:50 | Outpatient (CLI) | payer BC, SELFPAY ==
[2023-11-09 13:16] LABS: Anion Gap 6 mmol/L (4-12); Blood Urea Nitrogen 13 mg/dL (9-20); Calcium 9.3 mg/dL (8.4-10.2); Carbon Dioxide 31 mmol/L (22-30); Chloride 104 mmol/L (98-107); Cholesterol 187 mg/dL (0-200); Estimated Glomerular Filt Rate > 60; Glucose 134 mg/dL (65-110); HDL Direct 37 mg/dL; Potassium 4.3 mmol/L (3.4-5.0); Sodium 141 mmol/L (137-145); Triglycerides 124 mg/dL (<150)
[2023-11-09 13:27] LABS: LDL Cholesterol Direct 131 mg/dL
[2023-11-09 14:07] LABS: Creatinine Urine 234.5 mg/dL
[2023-11-09 15:45] LABS: MALB Creatinine Ratio 353.4 mg/g (0-30); Microalbumin Urine Random 828.8 mg/L (0-16.7)
[2023-11-09 18:55] LABS: Hemoglobin A1C 5.7 % (<5.7)
== END 2023-11-09 09:51 | disposition home or self-care (01) ==
PROVIDERS: PCP Internal Medicine; Visit Provider Clinical Nurse Specialist
DX: E11.65 Type 2 diabetes mellitus with hyperglycemia (principal)
CPT/HCPCS: 36415; 80048; 80061; 82043; 83036

== ENCOUNTER 2023-11-10 16:03 | Outpatient (CLI) | payer BC, SELFPAY ==
[2023-11-10 19:25] LABS: Creatinine Urine 172.3 mg/dL
[2023-11-10 19:34] LABS: MALB Creatinine Ratio 18.8 mg/g (0-30); Microalbumin Urine Random 32.4 mg/L (0-16.7)
== END 2023-11-10 16:04 | disposition home or self-care (01) ==
LOC: ANHGOSHLAB 16:07
PROVIDERS: PCP Internal Medicine; Visit Provider Clinical Nurse Specialist
DX: E11.9 Type 2 diabetes mellitus without complications (principal)
CPT/HCPCS: 82043

== ENCOUNTER 2024-02-15 09:56 | Outpatient (CLI) | payer BC, SELFPAY ==
[2024-02-15 13:05] LABS: Basophils Absolute Auto 0.1 K/mm3 (0.0-0.1); Basophils Percent Auto 0.9 % (0.2-1.2); Eosinophils Absolute Auto 0.2 K/mm3 (0-0.3); Eosinophils Percent Auto 3.2 % (0-4.4); Hematocrit 42.5 % (42.0-52.0); Hemoglobin 14.6 g/dL (14.0-18.0); Immature Granulocyte Absolute 0.02 K/mm3 (0.00-0.031); Immature Granulocyte Percent A 0.4 % (0-0.5); Lymphocytes Absolute Auto 1.59 K/mm3 (0.9-3.2); Lymphocytes Percent Auto 28.3 % (18.3-44.2); Mean Corpuscular HGB Conc 34.4 g/dl (32-36); Mean Corpuscular Hemoglobin 30.1 pg (26-34); Mean Corpuscular Volume 87.6 fl (80-100); Mean Platelet Volume 9.5 fl (7.4-10.4); Monocytes Absolute Auto 0.5 K/mm3 (0.1-0.6); Monocytes Percent Auto 9.6 % (2.6-8.5); Neutrophils Absolute Auto 3.2 K/mm3 (1.3-6.7); Neutrophils Percent Auto 57.6 % (45.5-73.1); Platelet Count Result 161 k/mm3 (150-375); Red Blood Count 4.85 M/mm3 (4.6-6.20); Red Cell Distribution Width 13.1 % (11.5-14.5); White Blood Count 5.6 K/mm3 (4.5-10.0)
[2024-02-15 13:12] LABS: Alanine Aminotransferase 42 U/L (6-50); Albumin Level 4.2 g/dL (3.5-5.1); Alkaline Phosphatase 74 U/L (38-126); Anion Gap 9 mmol/L (4-12); Aspartate Amino Transferase 47 U/L (17-59); Bilirubin,Total 0.8 mg/dL (0.2-1.3); Blood Urea Nitrogen 12 mg/dL (9-20); Calcium 8.8 mg/dL (8.4-10.2); Carbon Dioxide 29 mmol/L (22-30); Chloride 101 mmol/L (98-107); Cholesterol 169 mg/dL (0-200); Estimated Glomerular Filt Rate > 60; Glucose 136 mg/dL (65-110); HDL Direct 27 mg/dL; Potassium 4.2 mmol/L (3.4-5.0); Sodium 139 mmol/L (137-145); Triglycerides 150 mg/dL (<150)
[2024-02-15 13:23] LABS: LDL Cholesterol Direct 121 mg/dL
[2024-02-15 13:47] LABS: Creatinine Urine 266.8 mg/dL
[2024-02-15 13:49] LABS: MALB Creatinine Ratio 13.4 mg/g (0-30); Microalbumin Urine Random 35.7 mg/L (0-16.7)
[2024-02-15 14:04] LABS: Hemoglobin A1C 6.6 % (<5.7)
== END 2024-02-15 09:57 | disposition home or self-care (01) ==
LOC: ANHGOSHLAB 09:58
PROVIDERS: PCP Clinical Nurse Specialist; Visit Provider Clinical Nurse Specialist
DX: E11.65 Type 2 diabetes mellitus with hyperglycemia (principal); I48.91 Unspecified atrial fibrillation
CPT/HCPCS: 36415; 80053; 80061; 82043; 83036; 85025

== ENCOUNTER 2024-08-30 09:02 | Outpatient (CLI) | payer BC, SELFPAY ==
[2024-08-30 16:52] LABS: Alanine Aminotransferase 28 U/L (6-50); Albumin Level 4.1 g/dL (3.5-5.1); Alkaline Phosphatase 91 U/L (38-126); Anion Gap 11 mmol/L (4-12); Aspartate Amino Transferase 31 U/L (17-59); Bilirubin,Total 0.8 mg/dL (0.2-1.3); Blood Urea Nitrogen 14 mg/dL (9-20); Calcium 8.8 mg/dL (8.4-10.2); Carbon Dioxide 30 mmol/L (22-30); Chloride 99 mmol/L (98-107); Estimated Glomerular Filt Rate > 60; Glucose 140 mg/dL (65-110); Potassium 4.5 mmol/L (3.4-5.0); Sodium 140 mmol/L (137-145)
[2024-08-30 20:56] LABS: Hemoglobin A1C 6.8 % (<5.7)
== END 2024-08-30 09:03 | disposition home or self-care (01) ==
LOC: ANHGOSHLAB 09:03
PROVIDERS: PCP Internal Medicine; Visit Provider Nurse Practitioner
DX: E11.65 Type 2 diabetes mellitus with hyperglycemia (principal); Z12.5 Encounter for screening for malignant neoplasm of prostate
CPT/HCPCS: 36415; 80053; 83036; 84153; G0103

== ENCOUNTER 2025-02-28 10:32 | Outpatient (CLI) | payer BC, SELFPAY ==
--- OUTSIDE RECORDS SUMMARY | 2025-02-28 10:40 | XMS_ITS | Clinical Summary ---
Author Organization [email or web address] Address [address] [place] [address] Care Team Providers Care Concrete Block Molder Name Role Phone Unavailable Primary Care Provider Unavailabl e Source Comments [facility] [email or web address],non-owned Affiliates and Associated Physician Practices is amultiple site organization consisting of ambulatory clinics and hospital sitesin [place], [place], [place] and [place]. This disclosure is being madepursuant to the Care Everywhere program and may not contain all information available regarding this patient. 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 Gender Identity Not on file Sexual Orientation Not on file Plan of Treatment Health Maintenance Due Date Last Done Comments COLOGUARD (AGES 45-75) - COL ON CA SCREENING 1972 COLON MONITORING 1972 COLONOSCOPY - COLON CA SCREENING 1972 CT COLONOGRAPHY - COLON CA SCREENING 1972 Colorectal Cancer Screening 1972 FIT - COLON CA SCREENING 1972 FLEX SIG - COLON CA SCREENING 1972 LIPID TESTING 1972 HIV SCREENING 10/14/1987 HEPATITIS C SCREENING 10/09/1990 HEPATITIS B VACCINE (1 of 3 - 19+ 3-dose series) 10/14/1991 PNEUMOCOCCAL VACCINE 50+ (1 of 1 - PCV) 2022 ZOSTER VACCINE (1 of 2) 2022 COVID-19 VACCINE ( - 2023-2 5 season) 2024 DEPRESSION SCREENING 08/01/2024 INFLUENZA VACCINE (#1) 2025 DTAP/TDAP/TD VACCINES (2 - T d or Tdap) 02/16/2029 02/16/2019 HIB VACCINE Aged Out No longer eligi ble based on patient's age to complete this topic HPV VACCINE Aged Out No longer eligi ble based on patient's age to complete this topic MENINGOCOCCAL (Group B) VACC INE SHARED DECISION-MAKING Aged Out No longer eligibl e based on patient's age to complete this topic MENINGOCOCCAL GROUPS A/C/Y/W VACCINE Aged Out No longer eligible b ased on patient's age to complete this topic Insurance [facility] Address: [facility] [id number] [place] [address]
--- OUTSIDE RECORDS SUMMARY | 2025-02-28 10:40 | XMS_ITS | Referral Summary ---
Author Organization [facility] [address] Address [address] [place] [address] Care Team Providers Care Comp Field Case Manager Name Role Phone Kevin Bustos DO Primary Care Provider [phone] Encounters Date Type Department Care Team Description 02/21/2025 9:30 AM CDT Office Visit [facility] Cardiology [address] [place] [address] Katiana Goff NP Paroxysmal atrial flutter (HCC) (Primary Dx); Paroxysmal atrial fibrillation (HCC); Chronic anticoagulation from Last 3 Months Allergies No known active allergies Medications escitalopram (LEXAPRO) 10 mg tablet Take 1 tablet (10 mg total) by mouth daily 07/06/20 23 Active metFORMIN (GLUCOPHAGE) 1,000 mg tablet Take 1 tablet (1,000 mg total) by mouth 2 (two) times a day with meals 07/22/20 23 Active apixaban (ELIQUIS) 5 mg tablet Take 1 tablet (5 mg total) by mouth 2 (two) times a day 180 tablet 10/17/19 24 Active lisinopriL (PRINIVIL,ZESTRI L) 10 mg tabletIndication s:Primary hypertension Take 1 tablet (10 mg total) by mouth daily 30 tablet 11 12/15/19 24 Active amLODIPine (NORVASC) 10 mg tablet TAKE 1 TABLET BY MOUTH EVERY DAY 90 tablet 3 08/27/19 25 Active metoprolol tartrate (LOPRESSOR) 50 mg immediate release tablet Take 1 tablet (50 mg total) by mouth 2 (two) times a day 180 tablet 2 09/06/19 25 Active atorvastatin (LIPITOR) 10 mg tablet Take 1 tablet (10 mg total) by mouth nightly at bedtime. 12/03/19 25 Active Mounjaro 15 mg/0.5 mL pen injector injection 15 MG (0.5 ML) SUBCUTANEOUSLY WEEKLY 01/02/20 25 Active tirzepatide (MOUNJARO SUBQ) Take on Tuesday 0 24 025 Discontin ued(Alter antony therapy) Active Problems Problem Noted Date Diagnosed Date Paroxysmal atrial fibrillation 07/05/2024 Atrial flutter 11/18/2023 Noncompliance w/medication t reatment due to intermit use of medication 08/03/2023 Right ventricular enlargement 01/13/2022 Mixed diabetic hyperlipidemi a associated with type 2 diabetes mellitus 07/08/2021 Paroxysmal atrial flutter 01/06/2021 ENEDINA on CPAP 01/06/2021 Diabetes mellitus type 2 in obese 01/06/2021 Social History Tobacco Use Types Packs/Day Years Used Date Smoking Tobacco: Former Cigarettes Smokeless Tobacco: Never Tobacco Cessation:Counseling Given: Not Answered Comments:Occasionally in teen years AUDIT-C Answer Date Recorded Q1: How often do you have a drink containing alcohol? Never 11/18/2023 Q2: How many drinks containi ng alcohol do you have on a typical day when you are drinking? Patient does not drink Q3: How often do you have si x or more drinks on one occasion? Never 11/18/2023 Personal Safety Answer Date Recorded Have you ever been in or are you currently in a harmful physical or emotional relationship or is someone making you feel afraid or unsafe? 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 Gender Identity Not on file Sexual Orientation Not on file Last Filed Vital Signs Vital Sign Reading Time Taken Comments Blood Pressure 130/78 02/21/2025 9:43 AM CDT Pulse 92 02/21/2025 9:43 AM CDT Temperature 36.1 C (97 F) 11/18/2023 9:55 AM CDT Respiratory Rate 16 12/15/2023 9:02 AM CDT Oxygen Saturation 97% 02/21/2025 9:43 AM CDT Inhaled Oxygen Concentration - - Weight 113.4 kg (250 lb) 02/21/2025 9:43 AM CDT Height 182.9 cm (6') 02/21/2025 9:43 AM CDT Body Mass Index 33.91 02/21/2025 9:43 AM CDT Plan of Treatment Not on file Medical Devices Implanted Type Area Multisensor Intelligence Officer Device Identifier Shelf Expiration Date Model / Serial / Lot [employer] Vascade Mvp 6-12fr Venous Closure [id number] - [id number] Implanted:Qty: 1 on 11/18/2023 by Enrique Fierro MD at [facility] 08/05/2025 800-612C-10 U / / [id number] A [employer] Vascade Mvp 6-12fr Venous Closure [id number] - [id number] Implanted:Qty: 1 on 11/18/2023 by Enrique Fierro MD at [facility] 08/05/2025 800-612C-10 U / / [id number] [employer] Vascade Mvp 6-12fr Venous Closure [id number] - [id number] Implanted:Qty: 1 on 11/18/2023 by Enrique Fierro MD at [facility] 07/04/2025 800-612C-10 U / / [id number] Procedures Procedure Name Priority Date/Time Associated Diagnosis Comments LIPID PANEL Routine 08/10/2023 3:45 PM ROCKET ENGINE MECHANIC from Last 3 Months or Most Recently Relevant to Health Maintenance Results * Lipid panel (08/10/2023 3:45 PM ROCKET ENGINE MECHANIC) SCRIBED Cholesterol, Total 185 <200 EXTERNAL LAB SCRIBED HDL 28 >39 EXTERNAL LAB SCRIBED LDL 90 <130 EXTERNAL LAB SCRIBED Triglycerides 368 <150 EXTERNAL LAB Blood us Historical Provider LAB BLOOD ORDERABLES Edit ed Result - Final EXTERNAL LAB from Last 3 Months or Most Recently Relevant to Health Maintenance [facility] [id number] Member Subscriber Plan / Payer (Ef fective 2020-Present) Name:Andrews Sutton Member ID:[id number] Relation to Subscriber:Self Name:Andrews Sutton Subscriber ID:[id number] Payer ID:[id number] Type:GOGETMi / ?.??O/PPO Address: [employer] [facility] [address] [place] [address] [facility] Care Teams Comp Field Case Manager Relationship Specialty Start Date End Date Kevin Bustos DO PCP - General Internal Medicine 12/06/20
--- OUTSIDE RECORDS SUMMARY | 2025-02-28 10:40 | XMS_ITS | Clinical Summary ---
Author Organization [facility] [address] Address [address] [place] [address] Care Team Providers Care Sales And In Home Delivery Specialist Name Role Phone Kevin Bustos DO Primary Care Provider [phone]- [phone] Allergies No known active allergies Medications escitalopram [...] Diabetes mellitus type 2 in obese 01/06/2021 Encounters Date Type Department Care Team Description 02/21/2025 9:30 AM CDT Office Visit [facility] Cardiology [address] [place] [address] Katiana Goff NP Paroxysmal atrial flutter (HCC) (Primary Dx); Paroxysmal atrial fibrillation (HCC); Chronic anticoagulation from Last 3 Months Surgical History Surgery Date Site/Laterality Comments NO PAST SURGERIES Medical History Medical History Date Comments Arrhythmia Sleep apnea Gout Kidney stones Atrial fibrillation (HCC) Diabetes mellitus (HCC) Atrial flutter (HCC) Type 2 diabetes mellitus (HCC) Family History Medical History Relation Name Comments Stroke Brother 2 Heart attack Father Relation Name Status Comments Brother 1 Alive Brother 2 (Age 57) Father (Age 82) Mother Alive Sister Alive Social History Tobacco Use Types Packs/Day Years [...] on file 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 Gender Identity Not on file Sexual Orientation Not on file Obstetrics History Last Filed Vital Signs Vital Sign Reading [...] 02/21/2025 9:43 AM CDT Plan of Treatment Health Maintenance Due Date Last Done Comments Albumin Creatinine Ratio, Urine 1972 Colon Cancer Screening-Colonoscopy 1972 Depression Screening 1972 Hemoglobin A1C 1972 Hepatitis C Screening 1972 Prostate Cancer Screening-PSA 1972 eGFR 1972 Dilated Eye Exam 1972 Foot Exam 1972 Hepatitis B Screening 1990 Regular Well Visit/Exam 18-64 1990 Pneumococcal vaccine <65 (1 of 2 - PCV) 10/14/1991 Zoster Vaccine (1 of 2) 2022 Lipid Panel 08/10/2024 08/10/2023, 09/2023, 01/13/2022, Additional history exists Influenza Vaccine (#1) 2025 DTaP/Tdap/Td Vaccine (2 - Td or Tdap) 02/16/2029 02/16/2019 Medical Devices Implanted Type Area Fleet Manager Device Identifier Shelf Expiration Date Model / Serial / Lot [employer] Vascade Mvp 6-12fr Venous Closure [id number] - [id number] Implanted:Qty: 1 on 11/18/2023 by Enrique Fierro MD at [facility] [employer] 08/05/2025 800-612C-10 U / / [id number] A [employer] Vascade Mvp 6-12fr Venous Closure [id number] - [id number] Implanted:Qty: 1 on 11/18/2023 by Enrique Fierro MD at [facility] [employer] 08/05/2025 800-612C-10 U / / [id number] A [facility] Vascade Mvp 6-12fr Venous Closure [id number] - [id number] Implanted:Qty: 1 on 11/18/2023 by Enrique Fierro MD at [facility] 07/04/2025 800-612C-10 U / / [id number] Procedures Procedure Name Priority Date/Time Associated Diagnosis Comments LIPID PANEL Routine 08/10/2023 3:45 PM PRINTER SLOTTER OPERATOR from Last 3 Months or Most Recently Relevant to Health Maintenance Results * Lipid panel (08/10/2023 3:45 PM PRINTER SLOTTER OPERATOR) SCRIBED Cholesterol, Total 185 <200 EXTERNAL LAB SCRIBED HDL 28 >39 EXTERNAL LAB SCRIBED LDL 90 <130 EXTERNAL LAB SCRIBED Triglycerides 368 <150 EXTERNAL LAB Blood us Historical Provider LAB BLOOD ORDERABLES Edit ed Result - Final EXTERNAL LAB from Last 3 Months or Most Recently Relevant to Health Maintenance Insurance Diss[employer] [facility] [id number] [facility] Care Teams Sales And In Home Delivery Specialist Relationship Specialty Start Date End Date Kevin Bustos DO PCP - General Internal Medicine 12/06/20
[2025-02-28 13:11] LABS: Alanine Aminotransferase 34 U/L (6-50); Albumin Level 4.1 g/dL (3.5-5.1); Alkaline Phosphatase 75 U/L (38-126); Anion Gap 9 mmol/L (4-12); Aspartate Amino Transferase 49 U/L (17-59); Bilirubin,Total 0.8 mg/dL (0.2-1.3); Blood Urea Nitrogen 13 mg/dL (9-20); Calcium 9.2 mg/dL (8.4-10.2); Carbon Dioxide 28 mmol/L (22-30); Chloride 101 mmol/L (98-107); Cholesterol 148 mg/dL (0-200); Estimated Glomerular Filt Rate > 60; Glucose 172 mg/dL (65-110); HDL Direct 25 mg/dL; Hematocrit 44.0 % (42.0-52.0); Hemoglobin 15.0 g/dL (14.0-18.0); Immature Granulocyte Percent A 0.4 % (0-0.5); Lymphocytes Absolute Auto 1.77 K/mm3 (0.9-3.2); Mean Corpuscular HGB Conc 34.1 g/dl (32-36); Mean Corpuscular Hemoglobin 29.5 pg (26-34); Mean Corpuscular Volume 86.4 fl (80-100); Nucleated Red Blood Cells Absolute Auto 0.000 K/mm3 (0.0-0.012); Nucleated Red Blood Cells Perc 0.0 % (0.0-0.2); Platelet Count Result 151 k/mm3 (150-375); Potassium 4.5 mmol/L (3.4-5.0); Red Blood Count 5.09 M/mm3 (4.6-6.20); Sodium 138 mmol/L (137-145); Total Protein 7.6 g/dL (6.3-8.2); Triglycerides 185 mg/dL (<150); White Blood Count 5.0 K/mm3 (4.5-10.0)
[2025-02-28 13:35] LABS: MALB Creatinine Ratio 9.9 mg/g (0-30)
[2025-02-28 14:12] LABS: Hemoglobin A1C 8.9 % (<5.7)
== END 2025-02-28 10:33 | disposition home or self-care (01) ==
LOC: ANHGOSHLAB 10:34
PROVIDERS: PCP Internal Medicine; Visit Provider Nurse Practitioner
DX: E78.2 Mixed hyperlipidemia (principal); E11.9 Type 2 diabetes mellitus without complications
CPT/HCPCS: 36415; 80053; 80061; 82043; 83036; 85025

== ENCOUNTER 2025-04-19 11:19 | Outpatient (CLI) | payer BC, SELFPAY ==
--- OUTSIDE RECORDS SUMMARY | 2025-04-19 11:22 | XMS_ITS | Clinical Summary ---
Author Organization [facility] Address [address] [place] [address] Care Team Providers Care Communications Designer Name Role Phone Unavailable Primary Care Provider Unavailabl e Source Comments [facility],non-owned Affiliates and Associated Physician Practices is amultiple site organization consisting of ambulatory clinics and hospital sitesin [place], [place], [place] and [place]. This disclosure is being madepursuant to the Care Everywhere program and may not contain all information available regarding this patient. 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
--- OUTSIDE RECORDS SUMMARY | 2025-04-19 11:22 | XMS_ITS | Clinical Summary ---
Author Organization [facility] [address] Address [address] [place] [address] Care Team Providers Care Show Card Writer Name Role Phone Kevin Bustos DO Primary Care Provider +1- [phone] Allergies No known active allergies Medications escitalopram [...] (0.5 ML) SUBCUTANEOUSLY WEEKLY 01/02/20 25 Active Active Problems Problem Noted Date Diagnosed Date [...] Description 02/21/2025 9:30 AM CDT Office Visit [facility] Cardiology [address] [place] [address] Katiana Goff NP Paroxysmal atrial flutter (HCC) (Primary Dx); Paroxysmal atrial fibrillation (HCC); Chronic anticoagulation from Last 3 Months Surgical History Surgery Date Site/Laterality Comments NO PAST SURGERIES Medical History Medical History Date Comments Arrhythmia Sleep apnea Gout Kidney stones Atrial fibrillation (HCC) Diabetes mellitus (HCC) Atrial flutter (HCC) Type 2 diabetes mellitus Family History Medical History Relation Name Comments [...] on file 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 Gender Identity Not on file Sexual Orientation [...] 02/16/2029 02/16/2019 Medical Devices Implanted Type Area Lobby Concierge Device Identifier Shelf Expiration Date Model / Serial / Lot [employer] Vascade Mvp 6-12fr Venous Closure [id number] - [id number] Implanted:Qty: 1 on 11/18/2023 by Enrique Fierro MD at [facility] [employer] 08/05/2025 800-612C-10 U / / [id number] A [employer] Vascade Mvp 6-12fr Venous Closure [id number] - [id number] Implanted:Qty: 1 on 11/18/2023 by Enrique Fierro MD at [facility] [employer] 08/05/2025 800-612C-10 U / / [id number] [employer] Vascade Mvp 6-12fr Venous Closure [id number] - [id number] Implanted:Qty: 1 on 11/18/2023 by Enrique Fierro MD at [facility] [employer] [facility] 07/04/2025 800-612C-10 U / / [id number] Procedures Procedure Name Priority Date/Time Associated Diagnosis Comments LIPID PANEL Routine 08/10/2023 3:45 PM ACCOUNTS PAYABLE CLERK from Last 3 Months or Most Recently Relevant to Health Maintenance Results * Lipid panel (08/10/2023 3:45 PM ACCOUNTS PAYABLE CLERK) SCRIBED Cholesterol, Total 185 <200 EXTERNAL LAB SCRIBED HDL 28 >39 EXTERNAL LAB SCRIBED LDL 90 <130 EXTERNAL LAB SCRIBED Triglycerides 368 <150 EXTERNAL LAB Blood us Historical Provider LAB BLOOD ORDERABLES Edit ed Result - Final EXTERNAL LAB from Last 3 Months or Most Recently Relevant to Health Maintenance Insurance [employer] [facility] [id number] [facility] Care Teams Show Card Writer Relationship Specialty Start Date End Date Kevin Bustos DO PCP - General Internal Medicine 12/06/20
[2025-04-19 13:41] LABS: Alanine Aminotransferase 35 U/L (6-50); Albumin Level 4.3 g/dL (3.5-5.1); Alkaline Phosphatase 72 U/L (38-126); Aspartate Amino Transferase 48 U/L (17-59); Bilirubin,Total 0.8 mg/dL (0.2-1.3); Total Protein 7.6 g/dL (6.3-8.2)
== END 2025-04-19 11:20 | disposition home or self-care (01) ==
LOC: ANHGOSHLAB 11:20
PROVIDERS: PCP Internal Medicine; Visit Provider Podiatrist Foot & Ankle Surgery
DX: B35.1 Tinea unguium (principal)
CPT/HCPCS: 36415; 80076